=== PATIENT | female | born 1965 | race African-American/Black ===

== ENCOUNTER 2017-01-27 13:03 | Inpatient (IN) | payer MEDICARE, MEDICAID ==
[2017-01-27 13:55] LABS: Hematocrit 40 % (35-47); Hemoglobin 12.9 g/dl (12.0-16.0); Mean Corpuscular HGB Conc 33 g/dl (31-36); Mean Corpuscular Hemoglobin 29 pg (27-31); Mean Corpuscular Volume 88 fL (80-97); Mean Platelet Volume 9 um3 (7.4-10.4); Red Blood Count 4.53 10^6/ul (4.0-5.4); Red Cell Distribution Width 15 % (10.5-15); White Blood Count 4.9 10^3/ul (3.5-10.8)
[2017-01-27 14:20] LABS: ALT 33 U/L (7-52); AST 42 U/L (13-39); Albumin 4.2 g/dL (3.2-5.2); Alkaline Phosphatase 55 U/L (34-104); BUN/Creatinine Ratio 11.8 (8-20); Blood Urea Nitrogen 10 mg/dL (6-24); CO2 Carbon Dioxide 28 mmol/L (22-32); Chloride 103 mmol/L (101-111); EGFR African American 91.4 (>60); EGFR Non-African American 71.1 (>60); Globulin 3.9 g/dL (2-4); Glucose 122 mg/dL (70-100); Sodium 139 mmol/L (133-145); Total Protein 8.1 g/dL (6.4-8.9)
[2017-01-27 14:56] LABS: Acetaminophen < 15 mcg/mL; Alcohol < 10 mg/dL (<10); Salicylate < 2.50 mg/dL (<30)
[2017-01-27 15:01] LABS: TSH (Thyroid Stimulating Horm) 1.72 mcIU/mL (0.34-5.60)
[2017-01-27 15:04] LABS: Anion Gap 8 mmol/L (2-11); Potassium 2.7 mmol/L (3.5-5.0)
[2017-01-27] MEDS ORDERED: Potassium Chlor TAB* 20 MEQ TAB.ER PO ONE (15:17)
[2017-01-27 16:16] LABS: Urine Bacteria Absent (Absent); Urine Bilirubin Negative (Negative); Urine Glucose Negative (Negative); Urine Nitrite Negative (Negative)
[2017-01-27 16:25] LABS: Benzodiazepine Urine Screen None Detected (None Detect)
[2017-01-27] MEDS ORDERED: LORazepam TAB(*) 1 MG PO ONE (17:21)
[2017-01-27] MEDS ORDERED: Hydrochlorothiazide TAB* 25 MG PO ONE (17:23)
[2017-01-27] MEDS ORDERED: Lisinopril TAB* 10 MG PO ONE (17:23)
[2017-01-27] MEDS ORDERED: amLODIPine TAB* 5 MG PO ONE (18:31)
[2017-01-27] MEDS ORDERED: cloNIDine TAB* 0.1 MG PO ONE (18:31)
[2017-01-27] MEDS ORDERED: methylPREDNISolone 125 MG* 2 ML VIAL IV ONE (20:08)
[2017-01-27] MEDS ORDERED: diPHENhydraMINE IV* 50 MG/ML 1 ml VIAL (BENADRYL) IV ONE (20:08)
[2017-01-27] MEDS ORDERED: Famotidine IV* 10 MG/ML 2 ML (20 mg) IV ONE (20:08)
[2017-01-27] MEDS ORDERED: LORazepam INJ* 2 MG/ML 1 ML VIAL IV ONE (20:52)
--- NOTE | 2017-01-27 21:14 | ED ---
Arie Perrin Angela, scribed for Eliel Salcedo MD on 01/27/17 at 1322 . Psychiatric Complaint - HPI Summary HPI Summary: 51 y.o female presents to the ED accompanied with a friend c/o manic episodes a/ w auditory hallucinations and paranoia x3 days. Pt notes she has not been seeing any psychiatrists. She endorses SI but denies HI. Pt states a PMHx of bipolar but has not been compliant with her medications for "a while." Pt reports having beer today. - History Of Current Complaint Chief Complaint: EDPsychosocial Time Seen by Provider: 01/27/17 13:12 Hx Obtained From: Patient Onset/Duration: Lasting Days Aggravating Factor(s): Nothing Alleviating Factor(s): Nothing Associated Signs And Symptoms: Positive: Hallucinating, Paranoid Behavior Has Suicidal: Reports: Thoughts - Allergies/Home Medications Allergies/Adverse Reactions: Allergies Allergy/AdvReac Type Severity Reaction Status Date / Time No Known Allergies Allergy Verified 11/05/12 05:43 Home Medications: Home Medications Amitriptyline TAB* [Elavil TAB*] 25 mg PO BEDTIME 01/27/17 [History Confirmed ] Aspirin EC Low Dose* [Ecotrin EC Low Dose 81 MG*] 81 mg PO DAILY 01/27/17 [ History Confirmed 01/27/17] Atenolol TAB* [Tenormin TAB* 25 MG] 25 mg PO DAILY 01/27/17 [History Confirmed 01/27/17] Lisinopril/HCTZ 20/12.5(NF) [Zestoretic 20/12.5(NF)] 2 tab PO DAILY 01/27/17 [ History Confirmed 01/27/17] Potassium Chlor TAB* [Klor Con ER TAB*] 10 meq PO DAILY 01/27/17 [History Confirmed 01/27/17] ValACYclovir (*) [Valtrex 1 GM(*)] 1 gm PO DAILY 01/27/17 [History Confirmed 03/07] Zolpidem TAB* [Ambien TAB*] 10 mg PO BEDTIME PRN 01/27/17 [History Confirmed 03/07] clonazePAM TAB(*) [KlonoPIN TAB(*)] 1 mg PO TID PRN 01/27/17 [History Confirmed 01/27/17] metFORMIN* [Glucophage 1000 MG TAB *] 1,000 mg PO BID 01/27/17 [History Confirmed 01/27/17] PMH/Surg Hx/FS Hx/Imm Hx Endocrine/Hematology History: Reports: Hx Diabetes - FS BID Cardiovascular History: Reports: Hx Hypercholesterolemia, Hx Hypertension Psychiatric History: Reports: Hx Depression - FATHER, Hx Bipolar Disorder - MATERNAL UNCLE, Hx Suicide Attempt, Hx Substance Abuse Denies: Hx Eating Disorder, Hx of Violent Episodes Against Others - Surgical History Surgery Procedure, Year, and Place: HYSTERECTOMY FOR FIBROIDS Infectious Disease History: Reports: Hx Hepatitis Denies: Traveled Outside the [place] in Last 30 Days - Family History Known Family History: Positive: Other - No FHx mental illness - Social History Alcohol Use: unknown Substance Use Type: Reports: Cocaine, Heroin, Prescribed Smoking Status (MU): Unknown if Ever Smoked Review of Systems Negative: Fever Negative: Slurred Speech Positive: Other - Auditory hallucinations, SI, manic episodes, paranoia. NEGATIVE: HI All Other Systems Reviewed And Are Negative: Yes Physical Exam - Summary Physical Exam Summary: General: well-appearing, no pain distress Skin: warm, color reflects adequate perfusion, dry Head: normal Eyes: EOMI, JESUSITA ENT: normal Neck: supple, nontender Respiratory: CTA, breath sounds present Cardiovascular: RRR Abdomen: soft, nontender Bowel: present Musculoskeletal: normal, strength/ROM intact Neurological: normal, sensory/motor intact, A&O x3 Psychological: flat affect Triage Information Reviewed: Yes Vital Signs On Initial Exam: Initial Vitals Temp Pulse Resp BP Pulse Ox 97.4 F 102 16 148/90 100 01/27/17 13:07 01/27/17 13:07 01/27/17 13:07 01/27/17 13:07 01/27/17 13:07 Vital Signs Reviewed: Yes Diagnostics - Vital Signs Vital Signs Temp Pulse Resp BP Pulse Ox 01/27/17 13:07 97.4 F 102 16 148/90 100 - Laboratory Lab Results: Lab Results 01/27/17 01/27/17 01/27/17 Range/Units 13:42 13:42 16:03 WBC 4.9 (3.5-10.8) 10^3/ul RBC 4.53 (4.0-5.4) 10^6/ul Hgb 12.9 (12.0-16.0) g/dl Hct 40 (35-47) % MCV 88 (80-97) fL MCH 29 (27-31) pg MCHC 33 (31-36) g/dl RDW 15 (10.5-15) % Plt Count 214 (150-450) 10^3/ul MPV 9 (7.4-10.4) um3 Neut % (Auto) 63.0 (38-83) % Lymph % (Auto) 30.8 (25-47) % [place] % (Auto) 5.2 (1-9) % Eos % (Auto) 0.3 (0-6) % Baso % (Auto) 0.7 (0-2) % Absolute Neuts (auto) 3.1 (1.5-7.7) 10^3/ul Absolute Lymphs (auto) 1.5 (1.0-4.8) 10^3/ul Absolute Monos (auto) 0.3 (0-0.8) 10^3/ul Absolute Eos (auto) 0 (0-0.6) 10^3/ul Absolute Basos (auto) 0 (0-0.2) 10^3/ul Absolute Nucleated RBC 0 10^3/ul Nucleated RBC % 0 Sodium 139 (133-145) mmol/L Potassium 2.7 L* (3.5-5.0) mmol/L Chloride 103 (101-111) mmol/L Carbon Dioxide 28 (22-32) mmol/L Anion Gap 8 (2-11) mmol/L BUN 10 (6-24) mg/dL Creatinine 0.85 (0.51-0.95) mg/dL Est GFR ( Amer) 91.4 (>60) Est GFR (Non-Af Amer) 71.1 (>60) BUN/Creatinine Ratio 11.8 (8-20) Glucose 122 H (70-100) mg/dL Calcium 9.0 (8.6-10.3) mg/dL Total Bilirubin 0.30 (0.2-1.0) mg/dL AST 42 H (13-39) U/L ALT 33 (7-52) U/L Alkaline Phosphatase 55 (34-104) U/L Total Protein 8.1 (6.4-8.9) g/dL Albumin 4.2 (3.2-5.2) g/dL Globulin 3.9 (2-4) g/dL Albumin/Globulin Ratio 1.1 (1-3) TSH 1.72 (0.34-5.60) mcIU/mL Beta HCG, Quant 1.19 mIU/mL Urine Color Yellow Urine Appearance Cloudy Urine pH 6.0 (5-9) Ur Specific [place] 1.006 L (1.010-1.030) Urine Protein Negative (Negative) Urine Ketones Negative (Negative) Urine Blood Negative (Negative) Urine Nitrate Negative (Negative) Urine Bilirubin Negative (Negative) Urine Urobilinogen Negative (Negative) Ur Leukocyte Esterase Trace H (Negative) Urine WBC (Auto) Trace(0-5/hpf) (Absent) Urine RBC (Auto) Absent (Absent) Ur Squamous Epith Cells Present H (Absent) Urine Bacteria Absent (Absent) Urine Glucose Negative (Negative) Salicylates < 2.50 (<30) mg/dL Urine Opiates Screen (None Detect) Acetaminophen < 15 mcg/mL Ur Barbiturates Screen (None Detect) Ur Phencyclidine Scrn (None Detect) Ur Amphetamines Screen (None Detect) U Benzodiazepines Scrn (None Detect) Urine Cocaine Screen (None Detect) U Cannabinoids Screen (None Detect) Serum Alcohol < 10 (<10) mg/dL 01/27/17 Range/Units 16:03 WBC (3.5-10.8) 10^3/ul RBC (4.0-5.4) 10^6/ul Hgb (12.0-16.0) g/dl Hct (35-47) % MCV (80-97) fL MCH (27-31) pg MCHC (31-36) g/dl RDW (10.5-15) % Plt Count (150-450) 10^3/ul MPV (7.4-10.4) um3 Neut % (Auto) (38-83) % Lymph % (Auto) (25-47) % [place] % (Auto) (1-9) % Eos % (Auto) (0-6) % Baso % (Auto) (0-2) % Absolute Neuts (auto) (1.5-7.7) 10^3/ul Absolute Lymphs (auto) (1.0-4.8) 10^3/ul Absolute Monos (auto) (0-0.8) 10^3/ul Absolute Eos (auto) (0-0.6) 10^3/ul Absolute Basos (auto) (0-0.2) 10^3/ul Absolute Nucleated RBC 10^3/ul Nucleated RBC % Sodium (133-145) mmol/L Potassium (3.5-5.0) mmol/L Chloride (101-111) mmol/L Carbon Dioxide (22-32) mmol/L Anion Gap (2-11) mmol/L BUN (6-24) mg/dL Creatinine (0.51-0.95) mg/dL Est GFR ( Amer) (>60) Est GFR (Non-Af Amer) (>60) BUN/Creatinine Ratio (8-20) Glucose (70-100) mg/dL Calcium (8.6-10.3) mg/dL Total Bilirubin (0.2-1.0) mg/dL AST (13-39) U/L ALT (7-52) U/L Alkaline Phosphatase (34-104) U/L Total Protein (6.4-8.9) g/dL Albumin (3.2-5.2) g/dL Globulin (2-4) g/dL Albumin/Globulin Ratio (1-3) TSH (0.34-5.60) mcIU/mL Beta HCG, Quant mIU/mL Urine Color Urine Appearance Urine pH (5-9) Ur Specific [place] (1.010-1.030) Urine Protein (Negative) Urine Ketones (Negative) Urine Blood (Negative) Urine Nitrate (Negative) Urine Bilirubin (Negative) Urine Urobilinogen (Negative) Ur Leukocyte Esterase (Negative) Urine WBC (Auto) (Absent) Urine RBC (Auto) (Absent) Ur Squamous Epith Cells (Absent) Urine Bacteria (Absent) Urine Glucose (Negative) Salicylates (<30) mg/dL Urine Opiates Screen Presumptive positive H (None Detect) Acetaminophen mcg/mL Ur Barbiturates Screen None detected (None Detect) Ur Phencyclidine Scrn None detected (None Detect) Ur Amphetamines Screen None detected (None Detect) U Benzodiazepines Scrn None detected (None Detect) Urine Cocaine Screen Presumptive positive H (None Detect) U Cannabinoids Screen None detected (None Detect) Serum Alcohol (<10) mg/dL Result Diagrams: 01/27/17 13:42 01/27/17 13:42 Lab Statement: Any lab studies that have been ordered have been reviewed, and results considered in the medical decision making process. - EKG 1547 Cardiac Rate: NL - 86 bpm EKG Rhythm: Sinus Rhythm Ectopy: None EKG Interpretation: Early repolarization. No U waves. Re-Evaluation - Re-Evaluation First Eval Re-Evaluation Time: 15:22 Comment: Noise in the ED is slightly bothering pt. Explained process of mental health evaluation. Second Eval Re-Evaluation Time: 17:20 Comment: Pt is back from flex due to elevated BP. Third Eval Re-Evaluation Time: 20:05 Comment: Pt has swelling on upper left lip most likely from the lisinopril. Probably angioedema but airways are open. Course/Dx - Course Course Of Treatment: Medically cleared at 15:17. Elevated BP noted, pt is advised to follow up with her PCP for the htn. PATIENT CLEARED FOR MHE. SHE THEN DEVELOPED HYPERTENSION AND WITHDRAWAL SX. SHE WAS RETURNED TO THE ED. SHE WAS GIVEN ATIVAN 2MG PO, LISINOPRIL 20MG PO, HCTZ 12.5MG PO, AMLODIPINE 10MG PO AND CLONIDINE 0.1 MG PO. HER BP NORMALIZED, SHE THEN DEVELOPED SWELLING OF HER UPPER LIP; MOST PROBABLY ANGIOEDEMA FROM THE HESHAM INHIBITOR, LISINOPRIL. SHE WAS GIVEN BENADRYL 50MG IV, PEPCID 40MG IV AN SOLUMEDROL 125MG IV. LATER, FOR AGITATION, SHE WAS GIVEN ATIVAN 2MG IV. MHE/DISPOSITION PENDING AT SHIFT CHANGE. - Differential Dx/Clinical Impression Provider Diagnosis: Mental health problem, Hypokalemia, Hypertension, HESHAM inhibitor-aggravated angioedema Discharge - Discharge Plan Condition: Stable Disposition: OTHER Discharge Disposition Comment: Pt will be signed out pending dispo awaiting MH eval. Referrals: Lisa Cruz MD [Primary Care Provider] - The documentation as recorded by the Arie cornejo Angela accurately reflects the service I personally performed and the decisions made by me, Eliel Salcedo MD.
[2017-01-27] MEDS ORDERED: Mouth Piece, Nicotine* 1 EACH CARTRIDGE ONE (23:46)
[2017-01-27] MEDS: Nicotine Inhaler* 10 MG AMP INH PRN (23:48)
--- NOTE | 2017-01-28 16:14 | ED ---
Kamlesh Perrin Thomas, scribed for Skyler Trevizo MD on 01/28/17 at 1144 . Progress - Progress Note Progress Note: Patient was consulted by Dr. Clarke. The patient is diagnosed with substance- induced mood disorder. She is being admitted to [facility] voluntarily. Course/Dx - Diagnoses Provider Diagnoses: Substance induced mood disorder The documentation as recorded by the Kamlesh cornejo Thomas accurately reflects the service I personally performed and the decisions made by Santhosh najera Walter, MD.
[2017-01-28] MEDS: metFORMIN* 1,000 MG TAB PO SCH (17:03)
[2017-01-28] MEDS: Acetaminophen TAB* 325 MG PO PRN (18:55)
[2017-01-28] MEDS: Al Hydrox/Mg Hydrox/Simet LIQ* 30 ML UDC PO PRN (19:35)
[2017-01-28] MEDS ORDERED: Amitriptyline TAB* 25 MG PO SCH (21:00)
[2017-01-28] MEDS ORDERED: diPHENhydraMINE PO* 50 MG PO ONE (22:14)
[2017-01-28] MEDS ORDERED: diPHENhydraMINE PO* 50 MG ONE (22:17)
[2017-01-28] MEDS ORDERED: LORazepam IM 0-6 mg for WAM protocol IM SCH (23:00)
[2017-01-28] MEDS ORDERED: LORazepam TAB(*) 1 MG ONE (23:42)
[2017-01-28] MEDS ORDERED: Mouth Piece, Nicotine* 1 EACH CARTRIDGE ONE (23:47)
[2017-01-28] MEDS: LORazepam PO 0-6 for WAM protocol PO SCH (23:48)
[2017-01-28] MEDS: Nicotine Inhaler* 10 MG AMP INH PRN (23:49)
[2017-01-29] MEDS: Acetaminophen TAB* 325 MG PO PRN ×2 (00:09→17:29)
[2017-01-29] MEDS ORDERED: Lisinopril/HCTZ 20/12.5(NF) TAB PO SCH (09:00)
[2017-01-29] MEDS ORDERED: Atenolol TAB* 25 MG PO SCH (09:00)
[2017-01-29] MEDS: Potassium Chlor TAB* 10 MEQ TAB.ER PO SCH (09:48)
[2017-01-29] MEDS: Aspirin EC Low Dose* 81 MG TAB.EC PO SCH (09:48)
[2017-01-29] MEDS: Vitamin THERAPEUTIC TAB PO SCH (09:48)
[2017-01-29] MEDS: metFORMIN* 1,000 MG TAB PO SCH ×2 (09:48→17:27)
[2017-01-29] MEDS: diPHENhydraMINE PO* 50 MG PO PRN ×2 (10:22→22:07)
[2017-01-29] MEDS ORDERED: LORazepam TAB(*) 1 MG PO ONE (10:38)
[2017-01-29 12:09] LABS: BUN/Creatinine Ratio 17.7 (8-20); Calcium 8.4 mg/dL (8.6-10.3); EGFR African American 79.4 (>60); EGFR Non-African American 61.8 (>60); Potassium 3.3 mmol/L (3.5-5.0)
[2017-01-29] MEDS ORDERED: metroNIDAZOLE TAB* 250 MG PO ONE (12:58)
[2017-01-29 14:17] LABS: Call Hep C TO BE CALLED
[2017-01-29] MEDS: Gabapentin CAP(*) 300 MG PO SCH ×2 (14:57→22:10)
[2017-01-29] MEDS: LORazepam PO 0-6 for WAM protocol PO SCH (15:15)
[2017-01-29] MEDS: Nicotine PATCH 7 MG/24 HR* PATCH TRANSDERM SCH (15:20)
[2017-01-29] MEDS: Nicotine Inhaler* 10 MG AMP INH PRN (18:56)
--- NOTE | 2017-01-29 20:40 | CONS ---
CONSULTATION REPORT: DATE OF CONSULT: 01/29/17 SERVICE REQUESTING CONSULTATION: Psychiatry. REASON FOR CONSULTATION: Tongue heaviness. SOURCE OF INFORMATION: History obtained from interview with psychiatric services, review of ED records, review of past medical records and discussion with patient. RELIABILITY: Fair. HISTORY OF PRESENT ILLNESS: This is a 51-year-old female with past medical history of bipolar disorder, presented to the hospital on 01/27/17 with yecenia associated with auditory hallucinations and paranoid ideation for approximately 3 days. She had been cleared to proceed to mental health unit; however, was noted to be hypertensive and was given Ativan, lisinopril, hydrochlorothiazide, and amlodipine and clonidine. After her blood pressure normalized, she was noted to have swelling of her upper lip, which was thought to be secondary to angioedema secondary to lisinopril, although it is noted that this has been a past medication, all unclear if she has been taking it. In the emergency room, she was given Benadryl, Pepcid and Solu-Medrol with stabilization and discharged to mental health unit. At the time of that incident, the patient indicates that she had itching all over, indicates she had hives, although this is not documented in the ED record. She denies any past episode similar to this event. On the day of consultation 48 hours later, the patient indicated she had tongue heaviness for which the hospitalist service was consulted for evaluation. The patient indicates to this author that she has had tongue heaviness for approximately last hour without a change. She denies any other portion of her body that feels affected including her lips. She denies any difficulty swallowing or breathing. No nausea, vomiting, chest pain, or lightheadedness. She says that her hands itch, otherwise no other parts of her body. Of note, symptoms started approximately 25 minutes after administration of atenolol. PAST MEDICAL HISTORY: Includes bipolar disorder, hypertension, hyperlipidemia, diabetes per chart review, depression, history of hysterectomy, hepatitis. CURRENT MEDICATIONS: Include: 1. Acetaminophen. 2. Maalox Plus. 3. Amitriptyline. 4. Aspirin. 5. Atenolol. 6. Benadryl. 7. Lorazepam. 8. Metformin. 9. Multivitamins. 10. Nicotine inhaler. 11. Potassium chloride. FAMILY HISTORY: Reviewed and noncontributory to this presentation. SOCIAL HISTORY: Laboratory positive for opioids and cocaine on presentation to the hospital. REVIEW OF SYSTEMS: As per HPI, otherwise all other systems negative. PHYSICAL EXAM: Last vitals at this a.m., 134/82, 55 beats per minute, respiratory rate when seen by this author is 14, T-max 100.2 overnight. Well appearing, lying flat in bed, interactive, pleasant, in no apparent distress. Talks in full sentences. Oropharynx is clear. She has moist mucous membranes. Her lips and tongue are not swollen. She has very clear and patent airway. She has non- elevated JVD. No cervical or supraclavicular lymphadenopathy. She has regular rate and rhythm. Her lungs are clear to auscultation. Her abdomen is soft and nontender. Extremities are warm and well perfused without clubbing, cyanosis, or edema. Skin is dry without evidence of rashes. She is alert and oriented x3. Cranial nerves are intact. ASSESSMENT AND PLAN: This is a 51-year-old female admitted to [facility] in the setting of yecenia with ED stay complicated by hypertension and episode of tongue swelling, thought to be angioedema in the setting of lisinopril. 1. Tongue swelling. At this point, I identified no evidence of increased tongue swelling. The patient indicates that the sensation of "tongue heaviness " has been stable over the last hour. I cautioned the patient and counseled her at length that should she have any change in the sensation, she should notify staff immediately and I discussed with consulting provider that I am happy to return to evaluate as I examined her tongue and oropharynx at length in order to make future comparison should she have changing symptomatology. It would be unusual to have recurrent angioedema 48 hours after previous event and absence of readministration of medication. She has absence of any rashes or hives to suggest other anaphylactoid reaction to atenolol. Should she have rapid change in her tongue size or respiratory compromise, a CAT call will be appropriate as would administration of 0.3 mg of epinephrine intramuscularly. We are happy to assist in this delivery, but you should hesitate should the patient have any respiratory distress. We will continue to follow for the patient's tongue swelling. 2. Hypertension. Would not discontinue atenolol at this time. Continue same medications as indicated in MAR. She has good blood pressure control at this time. 3. Type 2 diabetes, currently on metformin. I have added on hemoglobin A1c to previous labs to help guide future therapy. 4. Hypokalemia. Discussed with consulting provider. We will recheck BMP at this time. One can expect approximately 0.1 normal per liter increase and potassium for each 10 mEq administered. Target should be greater than 3.5, so for example, for a potassium of 2.7 on the 9th, the patient will require 80 mEq which could be administered orally. We will reconnect after labs have been returned to adjust potassium dosing today. Thank you for this consultation. I will continue to follow. [id number]/[facility] #: [id number] OWEN
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
[2017-01-29] MEDS: Lithium Carbonate TAB* 300 MG PO SCH (21:58)
[2017-01-29] MEDS: LORazepam TAB(*) 1 MG PO SCH (21:58)
[2017-01-29] MEDS: Cyclobenzaprine TAB* 10 MG PO PRN (22:07)
[2017-01-29] MEDS: Al Hydrox/Mg Hydrox/Simet LIQ* 30 ML UDC PO PRN (22:09)
[2017-01-29] MEDS: Nicotine Patch Removal NOTE FOLLOW UP SCH (22:11)
[2017-01-30] MEDS: Lithium Carbonate TAB* 300 MG PO SCH ×2 (10:03→21:04)
[2017-01-30] MEDS: Vitamin THERAPEUTIC TAB PO SCH (10:04)
[2017-01-30] MEDS: LORazepam PO 0-6 for WAM protocol PO SCH (10:05)
[2017-01-30] MEDS: Aspirin EC Low Dose* 81 MG TAB.EC PO SCH (10:06)
[2017-01-30] MEDS: diPHENhydraMINE PO* 50 MG PO PRN ×2 (10:06→18:53)
[2017-01-30] MEDS: Potassium Chlor TAB* 10 MEQ TAB.ER PO SCH (10:06)
[2017-01-30] MEDS: metFORMIN* 1,000 MG TAB PO SCH ×2 (10:07→16:55)
[2017-01-30] MEDS: Cyclobenzaprine TAB* 10 MG PO PRN ×2 (10:07→18:52)
[2017-01-30] MEDS: amLODIPine TAB* 5 MG PO SCH (10:07)
[2017-01-30] MEDS: Gabapentin CAP(*) 300 MG PO SCH ×3 (10:08→21:03)
[2017-01-30] MEDS: Nicotine GUM* 2 MG PO PRN (10:09)
[2017-01-30] MEDS: LORazepam TAB(*) 1 MG PO SCH ×2 (10:10→21:18)
[2017-01-30] MEDS: Nicotine PATCH 7 MG/24 HR* PATCH TRANSDERM SCH (10:10)
--- NOTE | 2017-01-30 11:58 | CONSULT ---
Subjective Date of Service: 01/30/17 Interval History: Events from yesterday reviewed. Difficulty eating but now resolved. Feels tongue "heaviness" has now resolved. Pruritis in hands continues but is relieved by PRN benadryl. Started flagyl day RIB SAWYER for vulvovaginitis but was discontinued and her symptoms are worsening (foul smelling discharge) which is typical for her. Objective Active Medications: Acetaminophen (Tylenol Tab*) 650 mg PO Q4H PRN PRN Reason: for pain; or Temp >101 F Last Admin: 01/29/17 17:29 Dose: 650 mg Al Hydrox/Mg Hydrox/Simethicone (Maalox Plus*) 30 ml PO Q4H PRN PRN Reason: INDIGESTION Last Admin: 01/29/17 22:09 Dose: 30 ml Amlodipine Besylate (Norvasc Tab*) 10 mg PO DAILY [facility] Last Admin: 01/30/17 10:07 Dose: 10 mg Aspirin (Aspirin Ec Low Dose*) 81 mg PO DAILY [facility] Last Admin: 01/30/17 10:06 Dose: 81 mg Cyclobenzaprine HCl (Flexeril Tab*) 10 mg PO BID PRN PRN Reason: PAIN Last Admin: 01/30/17 10:07 Dose: 10 mg Diphenhydramine HCl (Benadryl Po*) 50 mg PO Q6H PRN PRN Reason: Allergy Symptoms Last Admin: 01/30/17 10:06 Dose: 50 mg Gabapentin (Neurontin Cap(*)) 300 mg PO TID [facility] Last Admin: 01/30/17 10:08 Dose: 300 mg [place] Carbonate ([place] Carbonate Tab*) 450 mg PO BID [facility] Last Admin: 01/30/17 10:03 Dose: 450 mg Lorazepam (Ativan Tab(*)) 0 - 6 mg PO .PER [facility] QUINTIN PRN Reason: Protocol Last Admin: 01/30/17 10:05 Dose: 1 mg Lorazepam (Ativan Inj*) 0 - 6 mg IM .PER [place] PROTOCOL [facility] PRN Reason: Protocol Lorazepam (Ativan Tab(*)) 1 mg PO BID [facility] Last Admin: 01/30/17 10:10 Dose: 1 mg Metformin HCl (Glucophage*) 1,000 mg PO BID WITH MEALS [facility] Last Admin: 01/30/17 10:07 Dose: 1,000 mg Metronidazole (Flagyl Tab*) 500 mg PO BID [facility] Stop: 02/05/17 21:01 Multivitamins (Theragran Tab*) 1 tab PO DAILY [facility] Last Admin: 01/30/17 10:04 Dose: 1 tab Nicotine (Nicotine Inhaler*) 10 mg INH Q2H PRN PRN Reason: CRAVING Last Admin: 01/29/17 18:56 Dose: 10 mg Nicotine (Nicotine Patch 7 Mg/24 Hr*) 1 patch TRANSDERM DAILY [facility] Last Admin: 01/30/17 10:10 Dose: 1 patch Nicotine Polacrilex (Nicotine Gum*) 2 mg PO Q2H PRN PRN Reason: CRAVING Last Admin: 01/30/17 10:09 Dose: 2 mg Pharmacy Profile Note (Nicotine Patch Removal Note*) 1 note FOLLOW UP 2100 [facility] Last Admin: 01/29/17 22:11 Dose: Not Given Potassium Chloride (Klor Con Er Tab*) 10 meq PO DAILY [facility] Last Admin: 01/30/17 10:06 Dose: 10 meq Vital Signs 01/29/17 01/29/17 01/29/17 12:22 12:46 14:57 Temperature Pulse Rate Respiratory 16 16 16 Rate Blood Pressure (mmHg) O2 Sat by Pulse Oximetry 01/29/17 01/29/17 01/29/17 15:15 15:59 16:00 Temperature 100.4 F Pulse Rate 62 Respiratory 17 20 18 Rate Blood Pressure 132/80 (mmHg) O2 Sat by Pulse 100 Oximetry 01/29/17 01/29/17 01/29/17 17:15 18:33 18:34 Temperature 97.7 F Pulse Rate 73 Respiratory 18 18 18 Rate Blood Pressure 130/87 (mmHg) O2 Sat by Pulse 100 Oximetry 01/29/17 01/29/17 01/29/17 20:19 21:58 22:07 Temperature Pulse Rate 80 Respiratory 20 18 16 Rate Blood Pressure 132/77 (mmHg) O2 Sat by Pulse 100 Oximetry 01/29/17 01/29/17 01/29/17 22:10 22:14 22:57 Temperature Pulse Rate 76 Respiratory 16 16 Rate Blood Pressure 139/80 (mmHg) O2 Sat by Pulse 100 Oximetry 01/29/17 01/30/17 01/30/17 23:58 00:07 00:10 Temperature Pulse Rate Respiratory 18 18 18 Rate Blood Pressure (mmHg) O2 Sat by Pulse Oximetry 01/30/17 01/30/17 01/30/17 08:00 10:05 10:06 Temperature 98.0 F Pulse Rate 58 Respiratory 14 14 14 Rate Blood Pressure 153/88 (mmHg) O2 Sat by Pulse 100 Oximetry 01/30/17 01/30/17 01/30/17 10:07 10:08 10:10 Temperature Pulse Rate Respiratory 14 14 14 Rate Blood Pressure (mmHg) O2 Sat by Pulse Oximetry 01/30/17 11:20 Temperature Pulse Rate Respiratory 17 Rate Blood Pressure (mmHg) O2 Sat by Pulse Oximetry Oxygen Devices in Use Now: None Appearance: well appearing lying in bed, NAD Ears/Nose/Mouth/Throat: NL Teeth, Lips, Gums, Clear Oropharnyx, Mucous Membranes Moist Respiratory: Symmetrical Chest Expansion and Respiratory Effort, Clear to Auscultation Cardiovascular: RRR Neurological: Alert and Oriented x 3 Result Diagrams: 01/27/17 13:42 01/29/17 11:31 Additional Lab and Data: Lab Results 01/27/17 01/27/17 01/27/17 Range/Units 13:42 13:42 16:03 WBC 4.9 (3.5-10.8) 10^3/ul RBC 4.53 (4.0-5.4) 10^6/ul Hgb 12.9 (12.0-16.0) g/dl Hct 40 (35-47) % MCV 88 (80-97) fL MCH 29 (27-31) pg MCHC 33 (31-36) g/dl RDW 15 (10.5-15) % Plt Count 214 (150-450) 10^3/ul MPV 9 (7.4-10.4) um3 Neut % (Auto) 63.0 (38-83) % Lymph % (Auto) 30.8 (25-47) % Chambers % (Auto) 5.2 (1-9) % Eos % (Auto) 0.3 (0-6) % Baso % (Auto) 0.7 (0-2) % Absolute Neuts (auto) 3.1 (1.5-7.7) 10^3/ul Absolute Lymphs (auto) 1.5 (1.0-4.8) 10^3/ul Absolute Monos (auto) 0.3 (0-0.8) 10^3/ul Absolute Eos (auto) 0 (0-0.6) 10^3/ul Absolute Basos (auto) 0 (0-0.2) 10^3/ul Absolute Nucleated RBC 0 10^3/ul Nucleated RBC % 0 Sodium 139 (133-145) mmol/L Potassium 2.7 L* (3.5-5.0) mmol/L Chloride 103 (101-111) mmol/L Carbon Dioxide 28 (22-32) mmol/L Anion Gap 8 (2-11) mmol/L BUN 10 (6-24) mg/dL Creatinine 0.85 (0.51-0.95) mg/dL Est GFR ( Amer) 91.4 (>60) Est GFR (Non-Af Amer) 71.1 (>60) BUN/Creatinine Ratio 11.8 (8-20) Glucose 122 H (70-100) mg/dL Calcium 9.0 (8.6-10.3) mg/dL Total Bilirubin 0.30 (0.2-1.0) mg/dL AST 42 H (13-39) U/L ALT 33 (7-52) U/L Alkaline Phosphatase 55 (34-104) U/L Total Protein 8.1 (6.4-8.9) g/dL Albumin 4.2 (3.2-5.2) g/dL Globulin 3.9 (2-4) g/dL Albumin/Globulin Ratio 1.1 (1-3) TSH 1.72 (0.34-5.60) mcIU/mL Beta HCG, Quant 1.19 mIU/mL Urine Color Yellow Urine Appearance Cloudy Urine pH 6.0 (5-9) Ur Specific [place] 1.006 L (1.010-1.030) Urine Protein Negative (Negative) Urine Ketones Negative (Negative) Urine Blood Negative (Negative) Urine Nitrate Negative (Negative) Urine Bilirubin Negative (Negative) Urine Urobilinogen Negative (Negative) Ur Leukocyte Esterase Trace H (Negative) Urine WBC (Auto) Trace(0-5/hpf) (Absent) Urine RBC (Auto) Absent (Absent) Ur Squamous Epith Cells Present H (Absent) Urine Bacteria Absent (Absent) Urine Glucose Negative (Negative) Salicylates < 2.50 (<30) mg/dL Urine Opiates Screen (None Detect) Acetaminophen < 15 mcg/mL Ur Barbiturates Screen (None Detect) Ur Phencyclidine Scrn (None Detect) Ur Amphetamines Screen (None Detect) U Benzodiazepines Scrn (None Detect) Urine Cocaine Screen (None Detect) U Cannabinoids Screen (None Detect) Serum Alcohol < 10 (<10) mg/dL 01/27/17 Range/Units 16:03 WBC (3.5-10.8) 10^3/ul RBC (4.0-5.4) 10^6/ul Hgb (12.0-16.0) g/dl Hct (35-47) % MCV (80-97) fL MCH (27-31) pg MCHC (31-36) g/dl RDW (10.5-15) % Plt Count (150-450) 10^3/ul MPV (7.4-10.4) um3 Neut % (Auto) (38-83) % Lymph % (Auto) (25-47) % Chambers % (Auto) (1-9) % Eos % (Auto) (0-6) % Baso % (Auto) (0-2) % Absolute Neuts (auto) (1.5-7.7) 10^3/ul Absolute Lymphs (auto) (1.0-4.8) 10^3/ul Absolute Monos (auto) (0-0.8) 10^3/ul Absolute Eos (auto) (0-0.6) 10^3/ul Absolute Basos (auto) (0-0.2) 10^3/ul Absolute Nucleated RBC 10^3/ul Nucleated RBC % Sodium (133-145) mmol/L Potassium (3.5-5.0) mmol/L Chloride (101-111) mmol/L Carbon Dioxide (22-32) mmol/L Anion Gap (2-11) mmol/L BUN (6-24) mg/dL Creatinine (0.51-0.95) mg/dL Est GFR ( Amer) (>60) Est GFR (Non-Af Amer) (>60) BUN/Creatinine Ratio (8-20) Glucose (70-100) mg/dL Calcium (8.6-10.3) mg/dL Total Bilirubin (0.2-1.0) mg/dL AST (13-39) U/L ALT (7-52) U/L Alkaline Phosphatase (34-104) U/L Total Protein (6.4-8.9) g/dL Albumin (3.2-5.2) g/dL Globulin (2-4) g/dL Albumin/Globulin Ratio (1-3) TSH (0.34-5.60) mcIU/mL Beta HCG, Quant mIU/mL Urine Color Urine Appearance Urine pH (5-9) Ur Specific [place] (1.010-1.030) Urine Protein (Negative) Urine Ketones (Negative) Urine Blood (Negative) Urine Nitrate (Negative) Urine Bilirubin (Negative) Urine Urobilinogen (Negative) Ur Leukocyte Esterase (Negative) Urine WBC (Auto) (Absent) Urine RBC (Auto) (Absent) Ur Squamous Epith Cells (Absent) Urine Bacteria (Absent) Urine Glucose (Negative) Salicylates (<30) mg/dL Urine Opiates Screen Presumptive positive H (None Detect) Acetaminophen mcg/mL Ur Barbiturates Screen None detected (None Detect) Ur Phencyclidine Scrn None detected (None Detect) Ur Amphetamines Screen None detected (None Detect) U Benzodiazepines Scrn None detected (None Detect) Urine Cocaine Screen Presumptive positive H (None Detect) U Cannabinoids Screen None detected (None Detect) Serum Alcohol (<10) mg/dL Assessment/Plan - Billing 51 yo F h/o [employer] admitted to [facility] with ED stay c/b suspected angioedema in setting of ACEi. Angioedema - resolved. Lisinopril added to allergy list Vulovovaginitis - flagyl 500BID x 7 days added to MAR Pruritis - Benadyl PRN Diabetes - HbA1c in prediabetic range on metformin. Continue current therapy Hypokalemia - improved without therapy Will sign off for now. Please call with additional question [phone]
[2017-01-30] MEDS: metroNIDAZOLE TAB* 250 MG PO SCH ×2 (12:56→21:03)
[2017-01-30] MEDS: Acetaminophen TAB* 325 MG PO PRN (18:52)
[2017-01-30] MEDS: Nicotine Patch Removal NOTE FOLLOW UP SCH (21:18)
[2017-01-31] MEDS: diPHENhydraMINE PO* 50 MG PO PRN ×2 (05:58→19:09)
[2017-01-31] MEDS: Acetaminophen TAB* 325 MG PO PRN (05:58)
[2017-01-31] MEDS: Cyclobenzaprine TAB* 10 MG PO PRN ×2 (05:58→21:54)
[2017-01-31] MEDS: amLODIPine TAB* 5 MG PO SCH (09:51)
[2017-01-31] MEDS: Gabapentin CAP(*) 300 MG PO SCH ×3 (09:52→21:49)
[2017-01-31] MEDS: metroNIDAZOLE TAB* 250 MG PO SCH ×2 (09:53→21:50)
[2017-01-31] MEDS: metFORMIN* 1,000 MG TAB PO SCH ×2 (09:54→17:43)
[2017-01-31] MEDS: Lithium Carbonate TAB* 300 MG PO SCH ×2 (09:54→21:51)
[2017-01-31] MEDS: Vitamin THERAPEUTIC TAB PO SCH (09:54)
[2017-01-31] MEDS: Potassium Chlor TAB* 10 MEQ TAB.ER PO SCH (09:54)
[2017-01-31] MEDS: LORazepam PO 0-6 for WAM protocol PO SCH ×2 (09:55→10:24)
[2017-01-31] MEDS: Nicotine PATCH 7 MG/24 HR* PATCH TRANSDERM SCH (09:56)
[2017-01-31] MEDS: Aspirin EC Low Dose* 81 MG TAB.EC PO SCH (09:56)
[2017-01-31] MEDS: LORazepam TAB(*) 1 MG PO SCH ×2 (10:27→21:49)
--- NOTE | 2017-01-31 21:01 | PN ---
Subjective - Subjective Service Type: 92434 Hosp care 15 min low complexity Subjective: Patient visible in the milieu and noted to be social with select peers. She is attending groups and participating in weekend milieu activities. Patient denies alcohol w/d symptoms. She reports med compliance and denies med s/e. Patient reports worsening anxiety and insomnia only. She denies alcohol w/d symptoms. Patient reports fair appetite, but reports poor sleep maintenance. Patient Rx'd Ambien at home, but was informed this provider would not restart both home Klonopin and Ambien due to hypoventilation syndrome, which was discussed with patient. Patient amenable to initiation of Elavil 50mg po qhs as she reports no benefit on multiple past mood stabilizers and Trazodone. This is patient's first trial of [place]. She denies SI/HI and AH/VH. Objective - Appearance Appearance: Thin Framed Dysmorphic Features: No Hygiene: Normal Grooming: Well Kept - Behavior Psychomotor Activities: Normal Exhibits Abnormal Movement: No - Attitude and Relatedness Attitude and Relatedness: Cooperative Eye Contact: Fair - Speech Quality: Unpressured Latencies: Normal Quantity: Appropriate - Mood Patient's Decription of Mood: "Anxious" - Affect Observed Affect: Tense Affect Consistent with: Dysphoria - Thought Process Patient's Thought Process: Coherent Thought Content: No Passive Wish, No Suicidal Planning, No Homicidal Ideation, No Paranoid Ideation - Sensorium Experiencing Hallucinations: No, Sensorium is Clear Type of Hallucinations: Visual: No, Auditory: No, Command: No - Level of Consciousness Level of Consciousness: Alert Orientation: Yes Intact, Yes Orientated to Time, Yes Orientated to Place, Yes Orientated to Person - Impulse Control Impulse Control: Intact - Insight and Judgement Insight and Judgement: Fair - Group Participation Particating in Group Activities: Yes - Medication Management Medication Management Adherence: Yes Assessment - Assessment Merits Inpatient Hospitalization: For Immediate Safety, For Stabilization Inpatient DSM-IV Dx: 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 2. Alcohol use d/o. 3. Cocaine use d/o. 4. PTSD. 5. Bipolar d/o by Hx Plan - Plan Treatment Plan: Name: PAULIE MARADIAGA Birthdate: 1965 [id number] 1. Continue admission to the [facility] for safety and Sx mx. 2. Will re-start home dose Klonopin as patient reports intolerable anxiety with strangers. 3. Patient gives informed consent to start Elavil 50mg po qhs for poor sleep. Medications: Current Medications Acetaminophen (Tylenol Tab*) 650 mg PO Q4H PRN PRN Reason: for pain; or Temp >101 F Last Admin: 01/31/17 05:58 Dose: 650 mg Al Hydrox/Mg Hydrox/Simethicone (Maalox Plus*) 30 ml PO Q4H PRN PRN Reason: INDIGESTION Last Admin: 01/29/17 22:09 Dose: 30 ml Amlodipine Besylate (Norvasc Tab*) 10 mg PO DAILY [facility] Last Admin: 01/31/17 09:51 Dose: 10 mg Aspirin (Aspirin Ec Low Dose*) 81 mg PO DAILY [facility] Last Admin: 01/31/17 09:56 Dose: 81 mg Cyclobenzaprine HCl (Flexeril Tab*) 10 mg PO BID PRN PRN Reason: PAIN Last Admin: 01/31/17 05:58 Dose: 10 mg Diphenhydramine HCl (Benadryl Po*) 50 mg PO Q6H PRN PRN Reason: Allergy Symptoms Last Admin: 01/31/17 19:09 Dose: 50 mg Gabapentin (Neurontin Cap(*)) 300 mg PO TID [facility] Last Admin: 01/31/17 15:27 Dose: 300 mg [place] Carbonate ([place] Carbonate Tab*) 450 mg PO BID [facility] Last Admin: 01/31/17 09:54 Dose: 450 mg Lorazepam (Ativan Tab(*)) 1 mg PO BID [facility] Last Admin: 01/31/17 10:27 Dose: 1 mg Metformin HCl (Glucophage*) 1,000 mg PO BID WITH MEALS [facility] Last Admin: 01/31/17 17:43 Dose: 1,000 mg Metronidazole (Flagyl Tab*) 500 mg PO BID [facility] Stop: 02/05/17 21:01 Last Admin: 01/31/17 09:53 Dose: 500 mg Multivitamins (Theragran Tab*) 1 tab PO DAILY [facility] Last Admin: 01/31/17 09:54 Dose: 1 tab Nicotine (Nicotine Inhaler*) 10 mg INH Q2H PRN PRN Reason: CRAVING Last Admin: 01/29/17 18:56 Dose: 10 mg Nicotine (Nicotine Patch 7 Mg/24 Hr*) 1 patch TRANSDERM DAILY [facility] Last Admin: 01/31/17 09:56 Dose: 1 patch Nicotine Polacrilex (Nicotine Gum*) 2 mg PO Q2H PRN PRN Reason: CRAVING Last Admin: 01/30/17 10:09 Dose: 2 mg Pharmacy Profile Note (Nicotine Patch Removal Note*) 1 note FOLLOW UP 2100 [facility] Last Admin: 01/30/17 21:18 Dose: 1 note Potassium Chloride (Klor Con Er Tab*) 10 meq PO DAILY [facility] Last Admin: 01/31/17 09:54 Dose: 10 meq - Discharge Plan Discharge Plan: Outpatient Follow Up
[2017-01-31] MEDS ORDERED: clonazePAM TAB(*) 1 MG PO ONE (21:55)
[2017-01-31] MEDS ORDERED: Amitriptyline TAB* 50 MG PO SCH (22:00)
[2017-01-31] MEDS: Nicotine Patch Removal NOTE FOLLOW UP SCH (22:14)
[2017-02-01] MEDS: Cyclobenzaprine TAB* 10 MG PO PRN ×2 (08:36→21:12)
[2017-02-01] MEDS: Aspirin EC Low Dose* 81 MG TAB.EC PO SCH (08:37)
[2017-02-01] MEDS: clonazePAM TAB(*) 1 MG PO PRN ×2 (08:37→15:19)
[2017-02-01] MEDS: Nicotine Inhaler* 10 MG AMP INH PRN (08:37)
[2017-02-01] MEDS: Nicotine GUM* 2 MG PO PRN ×2 (08:37→15:48)
[2017-02-01] MEDS: Gabapentin CAP(*) 300 MG PO SCH ×2 (08:38→12:32)
[2017-02-01] MEDS: amLODIPine TAB* 5 MG PO SCH (08:38)
[2017-02-01] MEDS: Vitamin THERAPEUTIC TAB PO SCH (08:38)
[2017-02-01] MEDS: metFORMIN* 1,000 MG TAB PO SCH ×2 (08:38→16:47)
[2017-02-01] MEDS: Nicotine PATCH 7 MG/24 HR* PATCH TRANSDERM SCH (08:38)
[2017-02-01] MEDS: Potassium Chlor TAB* 10 MEQ TAB.ER PO SCH (08:38)
[2017-02-01] MEDS: metroNIDAZOLE TAB* 250 MG PO SCH ×2 (08:38→21:11)
[2017-02-01] MEDS: Lithium Carbonate TAB* 300 MG PO SCH ×2 (08:39→21:06)
[2017-02-01 08:56] LABS: BUN/Creatinine Ratio 14.1 (8-20); Calcium 9.2 mg/dL (8.6-10.3); EGFR Non-African American 78.5 (>60); Potassium 3.7 mmol/L (3.5-5.0)
[2017-02-01] MEDS: diPHENhydraMINE PO* 50 MG PO PRN ×2 (10:24→21:13)
[2017-02-01 11:08] LABS: Lithium 0.65 mmol/L (0.6-1.2)
[2017-02-01] MEDS: VALACYCLOVIR 1 GM PO SCH (12:32)
--- NOTE | 2017-02-01 15:38 | PN ---
Subjective - Subjective Service Type: 45781 Hosp care 15 min low complexity Subjective: Paulie requests to talk to this ghost writer directly after treatment team. She states "you had no right to take me off my klonopin." She states she cannot assess the effect of lithium trial due to high level of anxiety over the weekend. Concrete Crusher Loader Operator attempts to explain that substance use treatment facilities will not likely accept patients on controlled anxiolytics. She states she would prefer to be referred to a place that targets mental health. She endorses sleep latency due to racing thoughts. She states she did not take amitriptyline due to prior allergic reaction 3 years ago. She states that trazodone is not effective and does not want medications that cause weight gain. She is informed of normal BMP and negative HIV. She is informed of Hep C positive antibody. SHe reports anxiety and eagerness to start treatment if indicated. Objective - Appearance Appearance: Well Developed/Nourished Dysmorphic Features: Yes Hygiene: Normal Grooming: Fairly Well Kept - Behavior Psychomotor Activities: Normal Exhibits Abnormal Movement: No - Attitude and Relatedness Attitude and Relatedness: Irritable Eye Contact: Good - Speech Quality: Unpressured Latencies: Normal Quantity: Copious - interrupting - Mood Patient's Decription of Mood: "Anxious" - Affect Observed Affect: Tense Affect Consistent with: Dysphoria - Thought Process Patient's Thought Process: Circumstantial - klonopin; hep C treatment Assessment - Assessment Merits Inpatient Hospitalization: For Immediate Safety, For Stabilization, Consolidate Improvements, For Discharge Planning Inpatient DSM-IV Dx: 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 2. Alcohol use d/o. 3. Cocaine use d/o. 4. PTSD. 5. Bipolar d/o by Hx Clinical Impression: Patient is a 51yo female with recent deaths of three loved ones. She was sober from alcohol and drugs for two years and relapsed last week. She reports desire to be referred to extended program for dual diagnosis treatment. She has been non-adherent to most of her medications with the exception of controlled substances. She has poor insight into the effect of shadow graph weight operator use of benzodiazepines. Plan - Plan Treatment Plan: Name: PAULIE MARADIAGA Birthdate: 1965 [id number] Decrease use of clonazepam while increasing use of gabapentin and non- pharmalogical treatment for anxiety. Continue to treat bipolar disorder with lithium. Decrease observation to q30 min and allow staff pass. Consider further testing for hepatitis C. Continued Medication Management: Different Medication Medications: Current Medications Acetaminophen (Tylenol Tab*) 650 mg PO Q4H PRN PRN Reason: for pain; or Temp >101 F Last Admin: 01/31/17 05:58 Dose: 650 mg Al Hydrox/Mg Hydrox/Simethicone (Maalox Plus*) 30 ml PO Q4H PRN PRN Reason: INDIGESTION Last Admin: 01/29/17 22:09 Dose: 30 ml Amitriptyline HCl (Elavil Tab*) 50 mg PO BEDTIME [facility] Last Admin: 01/31/17 22:14 Dose: Not Given Amlodipine Besylate (Norvasc Tab*) 10 mg PO DAILY [facility] Last Admin: 02/01/17 08:38 Dose: 10 mg Aspirin (Aspirin Ec Low Dose*) 81 mg PO DAILY [facility] Last Admin: 02/01/17 08:37 Dose: 81 mg Clonazepam (Klonopin Tab(*)) 1 mg PO TID PRN PRN Reason: ANXIETY Last Admin: 02/01/17 15:19 Dose: 1 mg Cyclobenzaprine HCl (Flexeril Tab*) 10 mg PO BID PRN PRN Reason: PAIN Last Admin: 02/01/17 08:36 Dose: 10 mg Diphenhydramine HCl (Benadryl Po*) 50 mg PO Q6H PRN PRN Reason: Allergy Symptoms Last Admin: 02/01/17 10:24 Dose: 50 mg Gabapentin (Neurontin Cap(*)) 300 mg PO TID [facility] Last Admin: 02/01/17 12:32 Dose: 300 mg [place] Carbonate ([place] Carbonate Tab*) 450 mg PO BID [facility] Last Admin: 02/01/17 08:39 Dose: 450 mg Metformin HCl (Glucophage*) 1,000 mg PO BID WITH MEALS [facility] Last Admin: 02/01/17 08:38 Dose: 1,000 mg Metronidazole (Flagyl Tab*) 500 mg PO BID [facility] Stop: 02/05/17 21:01 Last Admin: 02/01/17 08:38 Dose: 500 mg Multivitamins (Theragran Tab*) 1 tab PO DAILY [facility] Last Admin: 02/01/17 08:38 Dose: 1 tab Nicotine (Nicotine Inhaler*) 10 mg INH Q2H PRN PRN Reason: CRAVING Last Admin: 02/01/17 08:37 Dose: 10 mg Nicotine (Nicotine Patch 7 Mg/24 Hr*) 1 patch TRANSDERM DAILY [facility] Last Admin: 02/01/17 08:38 Dose: 1 patch Nicotine Polacrilex (Nicotine Gum*) 2 mg PO Q2H PRN PRN Reason: CRAVING Last Admin: 02/01/17 08:37 Dose: 2 mg Pharmacy Profile Note (Nicotine Patch Removal Note*) 1 note FOLLOW UP 2100 [facility] Last Admin: 01/31/17 22:14 Dose: 1 note Potassium Chloride (Klor Con Er Tab*) 10 meq PO DAILY [facility] Last Admin: 02/01/17 08:38 Dose: 10 meq Valacyclovir HCl (Valtrex 1 Gm(*)) 1 gm PO DAILY [facility] PRN Reason: Protocol Last Admin: 02/01/17 12:32 Dose: 1 gm - Discharge Plan Discharge Plan: Consider Longer Term Tx Outpatient Program: [facility]
[2017-02-01] MEDS ORDERED: Lithium Carbonate TAB* 300 MG ONE (21:10)
[2017-02-01] MEDS: clonazePAM TAB(*) 1 MG PO SCH (21:11)
[2017-02-01] MEDS: Gabapentin CAP(*) 400 MG PO SCH (21:11)
[2017-02-01] MEDS: Acetaminophen TAB* 325 MG PO PRN (21:13)
[2017-02-01] MEDS: Nicotine Patch Removal NOTE FOLLOW UP SCH (22:45)
[2017-02-02] MEDS: Cyclobenzaprine TAB* 10 MG PO PRN ×4 (02:54→22:08)
[2017-02-02] MEDS: Acetaminophen TAB* 325 MG PO PRN ×3 (02:54→13:53)
[2017-02-02] MEDS: diPHENhydraMINE PO* 50 MG PO PRN ×4 (02:54→22:08)
[2017-02-02] MEDS: Aspirin EC Low Dose* 81 MG TAB.EC PO SCH (08:23)
[2017-02-02] MEDS: metFORMIN* 1,000 MG TAB PO SCH ×2 (08:23→17:34)
[2017-02-02] MEDS: amLODIPine TAB* 5 MG PO SCH (08:23)
[2017-02-02] MEDS: clonazePAM TAB(*) 1 MG PO SCH ×2 (08:24→22:08)
[2017-02-02] MEDS: Lithium Carbonate TAB* 300 MG PO SCH (08:24)
[2017-02-02] MEDS: metroNIDAZOLE TAB* 250 MG PO SCH ×2 (08:24→22:10)
[2017-02-02] MEDS: Gabapentin CAP(*) 400 MG PO SCH (08:24)
[2017-02-02] MEDS: Vitamin THERAPEUTIC TAB PO SCH (08:25)
[2017-02-02] MEDS: VALACYCLOVIR 1 GM PO SCH (08:25)
[2017-02-02] MEDS: Potassium Chlor TAB* 10 MEQ TAB.ER PO SCH (08:25)
[2017-02-02] MEDS: Nicotine PATCH 7 MG/24 HR* PATCH TRANSDERM SCH (09:40)
--- NOTE | 2017-02-02 11:14 | PN ---
Subjective - Subjective Service Type: 96506 Hosp care 15 min low complexity Subjective: Patient is irritable and expresses anger toward newspaper writer for benzodiazepine taper. She curses and yells at newspaper writer. Patient dismissive of suggestions to participate in [facility] referrals or other options such as outpatient services. She has been seclusive to room except for meals. She vacillates between desire for substance use treatment in regards to being continued on klonopin. She states she would like to continue on current medications until she goes to rehab and states indifference about danger of abrupt withdrawal. Objective - Appearance Appearance: Thin Framed Dysmorphic Features: No Hygiene: Normal Grooming: Fairly Well Kept - Behavior Psychomotor Activities: Normal Exhibits Abnormal Movement: No - Attitude and Relatedness Attitude and Relatedness: Irritable Eye Contact: Fair - Speech Quality: Pressured Latencies: Normal Quantity: Copious - Mood Patient's Decription of Mood: "Angry" - Affect Observed Affect: Labile Affect Consistent with: Dysphoria - Thought Process Patient's Thought Process: Circumstantial Thought Content: No Passive Wish, No Suicidal Planning, No Homicidal Ideation, No Paranoid Ideation - Sensorium Experiencing Hallucinations: No, Sensorium is Clear Type of Hallucinations: Visual: No, Auditory: No, Command: No - Level of Consciousness Level of Consciousness: Alert Orientation: Yes Intact, Yes Orientated to Time, Yes Orientated to Place, Yes Orientated to Person - Impulse Control Impulse Control: Poor - Insight and Judgement Insight and Judgement: Poor - Group Participation Particating in Group Activities: No - Medication Management Medication Management Adherence: Yes Assessment - Assessment Merits Inpatient Hospitalization: For Immediate Safety, For Stabilization, For Discharge Planning Inpatient DSM-IV Dx: 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 2. Alcohol use d/o. 3. Cocaine use d/o. 4. PTSD. 5. Bipolar d/o by Hx Clinical Impression: Patient is a 51yo female with recent deaths of three loved ones. She was sober from alcohol and drugs for two years and relapsed last week. She reports desire to be referred to extended program for dual diagnosis treatment. She has been non-adherent to most of her medications with the exception of controlled substances. She has poor insight into the effect of use of benzodiazepines. She is encouraged to participate in [facility] programming and complete paperwork for referrals. Plan - Plan Treatment Plan: Name: PAULIE MARADIAGA Birthdate: 1965 [id number] Decrease use of clonazepam while increasing use of gabapentin and non- pharmalogical treatment for anxiety. Continue to treat bipolar disorder with lithium and change to ER at bedtime for improved sleep. Staff to assist with completing [facility] paperwork to pursue referrals. Continued Medication Management: Different Medication Medications: Current Medications Acetaminophen (Tylenol Tab*) 650 mg PO Q4H PRN PRN Reason: for pain; or Temp >101 F Last Admin: 02/02/17 08:25 Dose: 650 mg Al Hydrox/Mg Hydrox/Simethicone (Maalox Plus*) 30 ml PO Q4H PRN PRN Reason: INDIGESTION Last Admin: 01/29/17 22:09 Dose: 30 ml Amlodipine Besylate (Norvasc Tab*) 10 mg PO DAILY [facility] Last Admin: 02/02/17 08:23 Dose: 10 mg Aspirin (Aspirin Ec Low Dose*) 81 mg PO DAILY [facility] Last Admin: 02/02/17 08:23 Dose: 81 mg Clonazepam (Klonopin Tab(*)) 1 mg PO BID [facility] Last Admin: 02/02/17 08:24 Dose: 1 mg Cyclobenzaprine HCl (Flexeril Tab*) 10 mg PO BID PRN PRN Reason: PAIN Last Admin: 02/02/17 08:25 Dose: 10 mg Diphenhydramine HCl (Benadryl Po*) 50 mg PO Q6H PRN PRN Reason: Allergy Symptoms Last Admin: 02/02/17 08:25 Dose: 50 mg Gabapentin (Neurontin Cap(*)) 600 mg PO TID [facility] Last Admin: 02/02/17 08:24 Dose: 400 mg [place] Carbonate ER ([place] Carbonate Tab ER*) 900mg PO BEDTIME [facility] Last Admin: 02/02/17 08:24 Dose: 450 mg Metformin HCl (Glucophage*) 1,000 mg PO BID WITH MEALS [facility] Last Admin: 02/02/17 08:23 Dose: 1,000 mg Metronidazole (Flagyl Tab*) 500 mg PO BID [facility] Stop: 02/05/17 21:01 Last Admin: 02/02/17 08:24 Dose: 500 mg Multivitamins (Theragran Tab*) 1 tab PO DAILY [facility] Last Admin: 02/02/17 08:25 Dose: 1 tab Nicotine (Nicotine Inhaler*) 10 mg INH Q2H PRN PRN Reason: CRAVING Last Admin: 02/01/17 08:37 Dose: 10 mg Nicotine (Nicotine Patch 7 Mg/24 Hr*) 1 patch TRANSDERM DAILY [facility] Last Admin: 02/02/17 09:40 Dose: 1 patch Nicotine Polacrilex (Nicotine Gum*) 2 mg PO Q2H PRN PRN Reason: CRAVING Last Admin: 02/01/17 15:48 Dose: 2 mg Pharmacy Profile Note (Nicotine Patch Removal Note*) 1 note FOLLOW UP 2100 [facility] Last Admin: 02/01/17 22:45 Dose: 1 note Potassium Chloride (Klor Con Er Tab*) 10 meq PO DAILY [facility] Last Admin: 02/02/17 08:25 Dose: 10 meq Valacyclovir HCl (Valtrex 1 Gm(*)) 1 gm PO DAILY [facility] PRN Reason: Protocol Last Admin: 02/02/17 08:25 Dose: 1 gm - Discharge Plan Discharge Plan: Drug/Alcohol Rehab
[2017-02-02] MEDS: Gabapentin CAP(*) 300 MG PO SCH ×2 (13:51→22:07)
[2017-02-02] MEDS: Lithium Carbonate ER* 450 MG TAB.ER PO SCH (22:07)
[2017-02-02] MEDS: Nicotine Patch Removal NOTE FOLLOW UP SCH (22:11)
[2017-02-03] MEDS: Nicotine Inhaler* 10 MG AMP INH PRN (06:09)
[2017-02-03] MEDS: Cyclobenzaprine TAB* 10 MG PO PRN ×2 (06:09→22:14)
[2017-02-03] MEDS: diPHENhydraMINE PO* 50 MG PO PRN ×2 (06:09→22:14)
[2017-02-03] MEDS: Acetaminophen TAB* 325 MG PO PRN ×2 (06:09→19:48)
[2017-02-03] MEDS: Nicotine GUM* 2 MG PO PRN ×4 (06:09→19:47)
[2017-02-03] MEDS: Gabapentin CAP(*) 300 MG PO SCH ×3 (09:38→22:15)
[2017-02-03] MEDS: Potassium Chlor TAB* 10 MEQ TAB.ER PO SCH (09:38)
[2017-02-03] MEDS: metFORMIN* 1,000 MG TAB PO SCH ×2 (09:38→16:51)
[2017-02-03] MEDS: Aspirin EC Low Dose* 81 MG TAB.EC PO SCH (09:39)
[2017-02-03] MEDS: amLODIPine TAB* 5 MG PO SCH (09:39)
[2017-02-03] MEDS: clonazePAM TAB(*) 1 MG PO SCH ×2 (09:39→22:15)
[2017-02-03] MEDS: Vitamin THERAPEUTIC TAB PO SCH (09:39)
[2017-02-03] MEDS: metroNIDAZOLE TAB* 250 MG PO SCH ×2 (09:39→22:16)
[2017-02-03] MEDS: VALACYCLOVIR 1 GM PO SCH (09:40)
[2017-02-03] MEDS: Nicotine PATCH 7 MG/24 HR* PATCH TRANSDERM SCH (11:00)
--- NOTE | 2017-02-03 15:39 | PN ---
Subjective - Subjective Subjective: Patient reports she is "tired" as she is not able to sleep well at night. She has been sleeping intermittently throughout the day. Purchasing And Fiscal Clerk encouraged her to stay awake during the day and participate in groups for therapeutic effect. Patient has been participating moreso in discharge planning. She found 1-800 phone numbers from a magazine and called some substance use treatment facilities : [facility] in [place], [facility] in [place], [place] and [facility]. She was initially dismissive of list of agencies from [facility] packet then expressed interest in [facility] in [facility]. Objective - Appearance Appearance: Thin Framed Dysmorphic Features: Yes Hygiene: Dirty Grooming: Disheveled - Behavior Psychomotor Activities: Abnormal-Decreased - psychomotor retardation Exhibits Abnormal Movement: Yes - Attitude and Relatedness Attitude and Relatedness: Withdrawn Eye Contact: Fair - Speech Quality: Unpressured Latencies: Short Quantity: Copious - Mood Patient's Decription of Mood: "tired" - Affect Observed Affect: Depressed Affect Consistent with: Dysphoria - Thought Process Patient's Thought Process: Coherent, Goal Directed, Circumstantial Thought Content: No Passive Wish, No Suicidal Planning, No Homicidal Ideation, No Paranoid Ideation - Sensorium Experiencing Hallucinations: No, Sensorium is Clear Type of Hallucinations: Visual: No, Auditory: No, Command: No - Level of Consciousness Level of Consciousness: Alert Orientation: Yes Intact, Yes Orientated to Time, Yes Orientated to Place, Yes Orientated to Person - Impulse Control Impulse Control: Tenuous - Insight and Judgement Insight and Judgement: Poor - Group Participation Particating in Group Activities: No - Medication Management Medication Management Adherence: Yes Assessment - Assessment Merits Inpatient Hospitalization: For Immediate Safety, For Stabilization, For Ongoing Evaluation, For Discharge Planning Inpatient DSM-IV Dx: 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 2. Alcohol use d/o. 3. Cocaine use d/o. 4. PTSD. 5. Bipolar d/o by Hx Clinical Impression: Patient is a 51yo female with recent deaths of three loved ones. She was sober from alcohol and drugs for two years and relapsed last week. She reports desire to be referred to extended program for dual diagnosis treatment. She has been non-adherent to most of her medications with the exception of controlled substances. She has poor insight into the effect of use of benzodiazepines. She is encouraged to participate in [facility] programming and complete paperwork for referrals. Patient reports being unable to sleep well at night due to decrease in sedating medications. She is encouraged to decrease daytime use of sedating medications , to attend programming and stay awake until bedtime to improve circadian rhythm. Plan - Plan Treatment Plan: Name: PAULIE MARADIAGA Birthdate: 1965 [id number] Decrease use of clonazepam while increasing use of gabapentin and non- pharmalogical treatment for anxiety. Continue to treat bipolar disorder with lithium and change to ER at bedtime for improved sleep. Obtain lithium level on morning of 02/05/17. Participate in unit programming to gain full benefit of admission. Continued Medication Management: Different Medication Medications: Current Medications Acetaminophen (Tylenol Tab*) 650 mg PO Q4H PRN PRN Reason: for pain; or Temp >101 F Last Admin: 02/03/17 06:09 Dose: 650 mg Al Hydrox/Mg Hydrox/Simethicone (Maalox Plus*) 30 ml PO Q4H PRN PRN Reason: INDIGESTION Last Admin: 01/29/17 22:09 Dose: 30 ml Amlodipine Besylate (Norvasc Tab*) 10 mg PO DAILY [facility] Last Admin: 02/03/17 09:39 Dose: 10 mg Aspirin (Aspirin Ec Low Dose*) 81 mg PO DAILY [facility] Last Admin: 02/03/17 09:39 Dose: 81 mg Clonazepam (Klonopin Tab(*)) 1 mg PO BID [facility] Last Admin: 02/03/17 09:39 Dose: 1 mg Cyclobenzaprine HCl (Flexeril Tab*) 10 mg PO BID PRN PRN Reason: PAIN Last Admin: 02/03/17 06:09 Dose: 10 mg Diphenhydramine HCl (Benadryl Po*) 50 mg PO Q6H PRN PRN Reason: Allergy Symptoms Last Admin: 02/03/17 06:09 Dose: 50 mg Gabapentin (Neurontin Cap(*)) 600 mg PO TID [facility] Last Admin: 02/03/17 14:37 Dose: 600 mg [place] Carbonate ([place] Carbonate Er Tab*) 900 mg PO BEDTIME [facility] Last Admin: 02/02/17 22:07 Dose: 900 mg Metformin HCl (Glucophage*) 1,000 mg PO BID WITH MEALS [facility] Last Admin: 02/03/17 09:38 Dose: 1,000 mg Metronidazole (Flagyl Tab*) 500 mg PO BID [facility] Stop: 02/05/17 21:01 Last Admin: 02/03/17 09:39 Dose: 500 mg Multivitamins (Theragran Tab*) 1 tab PO DAILY [facility] Last Admin: 02/03/17 09:39 Dose: 1 tab Nicotine (Nicotine Inhaler*) 10 mg INH Q2H PRN PRN Reason: CRAVING Last Admin: 02/03/17 06:09 Dose: 10 mg Nicotine (Nicotine Patch 7 Mg/24 Hr*) 1 patch TRANSDERM DAILY [facility] Last Admin: 02/03/17 11:00 Dose: Not Given Nicotine Polacrilex (Nicotine Gum*) 2 mg PO Q2H PRN PRN Reason: CRAVING Last Admin: 02/03/17 14:37 Dose: 2 mg Pharmacy Profile Note (Nicotine Patch Removal Note*) 1 note FOLLOW UP 2100 [facility] Last Admin: 02/02/17 22:11 Dose: 1 note Potassium Chloride (Klor Con Er Tab*) 10 meq PO DAILY [facility] Last Admin: 02/03/17 09:38 Dose: 10 meq Valacyclovir HCl (Valtrex 1 Gm(*)) 1 gm PO DAILY [facility] PRN Reason: Protocol Last Admin: 02/03/17 09:40 Dose: 1 gm - Discharge Plan Discharge Plan: Drug/Alcohol Rehab
[2017-02-03] MEDS: Al Hydrox/Mg Hydrox/Simet LIQ* 30 ML UDC PO PRN (19:49)
[2017-02-03 22:08] LABS: Hepatitis C RNA Quantitative Undetected IU/mL (Undetected)
[2017-02-03] MEDS: Lithium Carbonate ER* 450 MG TAB.ER PO SCH (22:13)
[2017-02-03] MEDS: Nicotine Patch Removal NOTE FOLLOW UP SCH (22:17)
[2017-02-04] MEDS: Vitamin THERAPEUTIC TAB PO SCH (08:33)
[2017-02-04] MEDS: Potassium Chlor TAB* 10 MEQ TAB.ER PO SCH (08:33)
[2017-02-04] MEDS: metFORMIN* 1,000 MG TAB PO SCH ×2 (08:33→16:01)
[2017-02-04] MEDS: amLODIPine TAB* 5 MG PO SCH (08:33)
[2017-02-04] MEDS: Gabapentin CAP(*) 300 MG PO SCH ×3 (08:33→21:58)
[2017-02-04] MEDS: metroNIDAZOLE TAB* 250 MG PO SCH ×2 (08:34→21:58)
[2017-02-04] MEDS: Aspirin EC Low Dose* 81 MG TAB.EC PO SCH (08:34)
[2017-02-04] MEDS: clonazePAM TAB(*) 1 MG PO SCH ×2 (08:34→21:58)
[2017-02-04] MEDS: VALACYCLOVIR 1 GM PO SCH (08:35)
[2017-02-04] MEDS: Nicotine PATCH 7 MG/24 HR* PATCH TRANSDERM SCH (08:35)
[2017-02-04] MEDS: Nicotine GUM* 2 MG PO PRN ×3 (08:37→16:52)
[2017-02-04] MEDS ORDERED: Mouth Piece, Nicotine* 1 EACH CARTRIDGE ONE (08:38)
[2017-02-04] MEDS: Nicotine Inhaler* 10 MG AMP INH PRN (08:38)
--- NOTE | 2017-02-04 14:21 | PN ---
Subjective - Subjective Service Type: 45107 Hosp care 15 min low complexity Subjective: Patient is calm and pleasant. She reports sleeping well last night and feels rested today. She has been working diligently on researching substance treatment facilities. Referrals being made by inventory planner. she states "I still feel like I have a lot of anxiety." She is receptive to suggestion of maintaining current medication regimen pending substance use tx facilities admission criteria. She is also receptive to suggestions of utilizing groups and learning new coping skills. She apologizes for agitation directed at staff in previous days. Patient questions answered re: further hepatitis testing, recent a1c and obtaining ppd test. Objective - Appearance Appearance: Thin Framed Dysmorphic Features: No Hygiene: Normal Grooming: Well Kept - Behavior Psychomotor Activities: Normal Exhibits Abnormal Movement: No - Attitude and Relatedness Attitude and Relatedness: Cooperative Eye Contact: Good - Speech Quality: Unpressured Latencies: Normal Quantity: Appropriate - Mood Patient's Decription of Mood: "Good" - Affect Observed Affect: Good Affect Consistent with: Euthymia - Thought Process Patient's Thought Process: Coherent, Goal Directed Thought Content: No Passive Wish, No Suicidal Planning, No Homicidal Ideation, No Paranoid Ideation - Sensorium Experiencing Hallucinations: No, Sensorium is Clear Type of Hallucinations: Visual: No, Auditory: No, Command: No - Level of Consciousness Level of Consciousness: Alert Orientation: Yes Intact, Yes Orientated to Time, Yes Orientated to Place, Yes Orientated to Person - Impulse Control Impulse Control: Tenuous - Insight and Judgement Insight and Judgement: Fair - Group Participation Particating in Group Activities: Yes - Medication Management Medication Management Adherence: Yes Assessment - Assessment Merits Inpatient Hospitalization: For Immediate Safety, For Stabilization, For Discharge Planning Inpatient DSM-IV Dx: 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 2. Alcohol use d/o. 3. Cocaine use d/o. 4. PTSD. 5. Bipolar d/o by Hx Clinical Impression: Patient is a 51yo female with recent deaths of three loved ones. She was sober from alcohol and drugs for two years and relapsed last week. She reports desire to be referred to extended program for dual diagnosis treatment. She has been non-adherent to most of her medications with the exception of controlled substances. She has been working diligently on researching available substance use treatment facilities. She requests ppd test for admission criteria. She also requests clonidine be reinstated for HTN. Plan - Plan Treatment Plan: Name: PAULIE MARADIAGA Birthdate: 1965 [id number] Continue current medications and add clonidine BID for HTN and anxiety. Obtain VS BID. Continue to treat bipolar disorder with lithium ER at bedtime for improved sleep. Obtain lithium level, BMP and Hgba1c on morning of 02/05/17. Will also place ppd for TB testing. Participate in unit programming to gain full benefit of admission. Continued Medication Management: Different Medication Medications: Current Medications Acetaminophen (Tylenol Tab*) 650 mg PO Q4H PRN PRN Reason: for pain; or Temp >101 F Last Admin: 02/03/17 19:48 Dose: 650 mg Al Hydrox/Mg Hydrox/Simethicone (Maalox Plus*) 30 ml PO Q4H PRN PRN Reason: INDIGESTION Last Admin: 02/03/17 19:49 Dose: 30 ml Amlodipine Besylate (Norvasc Tab*) 10 mg PO DAILY [facility] Last Admin: 02/04/17 08:33 Dose: 10 mg Aspirin (Aspirin Ec Low Dose*) 81 mg PO DAILY [facility] Last Admin: 02/04/17 08:34 Dose: 81 mg Clonazepam (Klonopin Tab(*)) 1 mg PO BID [facility] Last Admin: 02/04/17 08:34 Dose: 1 mg Clonidine HCl (Catapres Tab*) 0.1 mg PO BID [facility] Cyclobenzaprine HCl (Flexeril Tab*) 10 mg PO BID PRN PRN Reason: PAIN Last Admin: 02/03/17 22:14 Dose: 10 mg Diphenhydramine HCl (Benadryl Po*) 50 mg PO Q6H PRN PRN Reason: Allergy Symptoms Last Admin: 02/03/17 22:14 Dose: 50 mg Gabapentin (Neurontin Cap(*)) 600 mg PO TID [facility] Last Admin: 02/04/17 13:24 Dose: 600 mg [place] Carbonate ([place] Carbonate Er Tab*) 900 mg PO BEDTIME [facility] Last Admin: 02/03/17 22:13 Dose: 900 mg Metformin HCl (Glucophage*) 1,000 mg PO BID WITH MEALS [facility] Last Admin: 02/04/17 08:33 Dose: 1,000 mg Metronidazole (Flagyl Tab*) 500 mg PO BID [facility] Stop: 02/05/17 21:01 Last Admin: 02/04/17 08:34 Dose: 500 mg Multivitamins (Theragran Tab*) 1 tab PO DAILY [facility] Last Admin: 02/04/17 08:33 Dose: 1 tab Nicotine (Nicotine Inhaler*) 10 mg INH Q2H PRN PRN Reason: CRAVING Last Admin: 02/04/17 08:38 Dose: 10 mg Nicotine (Nicotine Patch 7 Mg/24 Hr*) 1 patch TRANSDERM DAILY [facility] Last Admin: 02/04/17 08:35 Dose: 1 patch Nicotine Polacrilex (Nicotine Gum*) 2 mg PO Q2H PRN PRN Reason: CRAVING Last Admin: 02/04/17 13:24 Dose: 2 mg Pharmacy Profile Note (Nicotine Patch Removal Note*) 1 note FOLLOW UP 2100 [facility] Last Admin: 02/03/17 22:17 Dose: Not Given Potassium Chloride (Klor Con Er Tab*) 10 meq PO DAILY [facility] Last Admin: 02/04/17 08:33 Dose: 10 meq Tuberculin PPD (Tuberculin Ppd Test Dose*) 5 tu INTRADERM ONCE [facility] Stop: 02/04/17 23:59 Valacyclovir HCl (Valtrex 1 Gm(*)) 1 gm PO DAILY [facility] PRN Reason: Protocol Last Admin: 02/04/17 08:35 Dose: 1 gm - Discharge Plan Discharge Plan: Drug/Alcohol Rehab
[2017-02-04] MEDS ORDERED: PPD test dose* 5 TU/0.1 ML TEST (*USE PPD ORDER SET*) INTRADERM ONE (15:00)
--- NOTE | 2017-02-04 15:59 | PN ---
MHU: Group Therapy Note - Service Type Service Type: [id number] Group Psychotherapy - Group Participation Patient Participating in Group: Yes Level of Group Participation: Attentive, Spontaneously Participate Relatedness to Group: Well Related
[2017-02-04] MEDS: Lithium Carbonate ER* 450 MG TAB.ER PO SCH (21:58)
[2017-02-04] MEDS: cloNIDine TAB* 0.1 MG PO SCH (21:58)
[2017-02-04] MEDS: diPHENhydraMINE PO* 50 MG PO PRN (22:00)
[2017-02-04] MEDS: Cyclobenzaprine TAB* 10 MG PO PRN (22:00)
[2017-02-04] MEDS: Nicotine Patch Removal NOTE FOLLOW UP SCH (23:12)
[2017-02-05 07:31] LABS: BUN/Creatinine Ratio 21.7 (8-20); Calcium 9.6 mg/dL (8.6-10.3); EGFR Non-African American 73.1 (>60); Potassium 3.6 mmol/L (3.5-5.0)
[2017-02-05 08:23] LABS: Lithium 1.14 mmol/L (0.6-1.2)
[2017-02-05] MEDS: Vitamin THERAPEUTIC TAB PO SCH (08:57)
[2017-02-05] MEDS: Aspirin EC Low Dose* 81 MG TAB.EC PO SCH (08:57)
[2017-02-05] MEDS: Gabapentin CAP(*) 300 MG PO SCH ×3 (08:57→22:00)
[2017-02-05] MEDS: Cyclobenzaprine TAB* 10 MG PO PRN ×2 (08:57→22:25)
[2017-02-05] MEDS: metroNIDAZOLE TAB* 250 MG PO SCH ×2 (08:58→22:00)
[2017-02-05] MEDS: VALACYCLOVIR 1 GM PO SCH (08:58)
[2017-02-05] MEDS: metFORMIN* 1,000 MG TAB PO SCH ×2 (08:58→17:41)
[2017-02-05] MEDS: cloNIDine TAB* 0.1 MG PO SCH ×2 (08:59→22:01)
[2017-02-05] MEDS: clonazePAM TAB(*) 1 MG PO SCH ×2 (08:59→22:29)
[2017-02-05] MEDS: amLODIPine TAB* 5 MG PO SCH (08:59)
[2017-02-05] MEDS: Potassium Chlor TAB* 10 MEQ TAB.ER PO SCH (08:59)
[2017-02-05] MEDS: Nicotine PATCH 7 MG/24 HR* PATCH TRANSDERM SCH (09:01)
[2017-02-05] MEDS: Nicotine Inhaler* 10 MG AMP INH PRN (09:03)
[2017-02-05] MEDS: Nicotine GUM* 2 MG PO PRN ×4 (09:04→17:42)
[2017-02-05] MEDS: Acetaminophen TAB* 325 MG PO PRN ×3 (12:52→22:25)
[2017-02-05] MEDS: diPHENhydraMINE PO* 50 MG PO PRN ×2 (12:52→22:25)
--- NOTE | 2017-02-05 14:49 | PN ---
Subjective - Subjective Service Type: 10811 Hosp care 15 min low complexity Subjective: Patient reports much improved mood and presents as euthymic with full range of affect. She reports sleeping well and denies anxiety. Patient informed of labs results and given copies. Stated understanding of results and expressed gratitude of non-active hepatitis. Stated understanding of lithium level and to maintain hydrated. Will recheck BMP and lithium level to monitor for kidney function and toxicity. She continues to plan for substance use rehab and has been coordinated with family members to be able to keep her apartment while away. Objective - Appearance Appearance: Well Developed/Nourished Dysmorphic Features: No Hygiene: Normal Grooming: Well Kept - Behavior Psychomotor Activities: Normal Exhibits Abnormal Movement: No - Attitude and Relatedness Attitude and Relatedness: Cooperative Eye Contact: Good - Speech Quality: Unpressured Latencies: Normal Quantity: Appropriate - Mood Patient's Decription of Mood: "grateful" - Affect Observed Affect: Good Affect Consistent with: Euthymia - Thought Process Patient's Thought Process: Coherent, Goal Directed Thought Content: No Passive Wish, No Suicidal Planning, No Homicidal Ideation, No Paranoid Ideation - Sensorium Experiencing Hallucinations: No, Sensorium is Clear Type of Hallucinations: Visual: No, Auditory: No, Command: No - Level of Consciousness Level of Consciousness: Alert Orientation: Yes Intact, Yes Orientated to Time, Yes Orientated to Place, Yes Orientated to Person - Impulse Control Impulse Control: Intact - Insight and Judgement Insight and Judgement: Good - Group Participation Particating in Group Activities: Yes - Medication Management Medication Management Adherence: Yes Assessment - Assessment Merits Inpatient Hospitalization: For Stabilization, Consolidate Improvements, For Discharge Planning Inpatient DSM-IV Dx: 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 2. Alcohol use d/o. 3. Cocaine use d/o. 4. PTSD. 5. Bipolar d/o by Hx Clinical Impression: Patient is a 51yo female with recent deaths of three loved ones. She was sober from alcohol and drugs for two years and relapsed in the beginning of january. She reports desire to be referred to extended program for dual diagnosis treatment. She had been non-adherent to most of her medications with the exception of controlled substances. She has been working diligently on researching available substance use treatment facilities. She hopes to pursue mental health and substance use recovery and potential go to college. Plan - Plan Treatment Plan: Name: PAULIE MARADIAGA Birthdate: 1965 [id number] Continue current medications and awaiting acceptance to substance use facility. Monitor lithium level and BMP. Continue therapeutic milieu, individual and group psychoeducation. Continued Medication Management: Different Medication Medications: Current Medications Acetaminophen (Tylenol Tab*) 650 mg PO Q4H PRN PRN Reason: for pain; or Temp >101 F Last Admin: 02/05/17 12:52 Dose: 650 mg Al Hydrox/Mg Hydrox/Simethicone (Maalox Plus*) 30 ml PO Q4H PRN PRN Reason: INDIGESTION Last Admin: 02/03/17 19:49 Dose: 30 ml Amlodipine Besylate (Norvasc Tab*) 10 mg PO DAILY [facility] Last Admin: 02/05/17 08:59 Dose: 10 mg Aspirin (Aspirin Ec Low Dose*) 81 mg PO DAILY [facility] Last Admin: 02/05/17 08:57 Dose: 81 mg Clonazepam (Klonopin Tab(*)) 1 mg PO BID [facility] Last Admin: 02/05/17 08:59 Dose: 1 mg Clonidine HCl (Catapres Tab*) 0.1 mg PO BID [facility] Last Admin: 02/05/17 08:59 Dose: 0.1 mg Cyclobenzaprine HCl (Flexeril Tab*) 10 mg PO BID PRN PRN Reason: PAIN Last Admin: 02/05/17 08:57 Dose: 10 mg Diphenhydramine HCl (Benadryl Po*) 50 mg PO Q6H PRN PRN Reason: Allergy Symptoms Last Admin: 02/05/17 12:52 Dose: 50 mg Gabapentin (Neurontin Cap(*)) 600 mg PO TID [facility] Last Admin: 02/05/17 14:41 Dose: 600 mg [place] Carbonate ([place] Carbonate Er Tab*) 900 mg PO BEDTIME [facility] Last Admin: 02/04/17 21:58 Dose: 900 mg Metformin HCl (Glucophage*) 1,000 mg PO BID WITH MEALS [facility] Last Admin: 02/05/17 08:58 Dose: 1,000 mg Metronidazole (Flagyl Tab*) 500 mg PO BID [facility] Stop: 02/05/17 21:01 Last Admin: 02/05/17 08:58 Dose: 500 mg Multivitamins (Theragran Tab*) 1 tab PO DAILY [facility] Last Admin: 02/05/17 08:57 Dose: 1 tab Nicotine (Nicotine Inhaler*) 10 mg INH Q2H PRN PRN Reason: CRAVING Last Admin: 02/05/17 09:03 Dose: 10 mg Nicotine (Nicotine Patch 7 Mg/24 Hr*) 1 patch TRANSDERM DAILY [facility] Last Admin: 02/05/17 09:01 Dose: 1 patch Nicotine Polacrilex (Nicotine Gum*) 2 mg PO Q2H PRN PRN Reason: CRAVING Last Admin: 02/05/17 12:53 Dose: 2 mg Pharmacy Profile Note (Nicotine Patch Removal Note*) 1 note FOLLOW UP 2100 [facility] Last Admin: 02/04/17 23:12 Dose: 1 note Pharmacy Profile Note (Ppd Reading Note*) 1 note .SEE ORDER .ONCE [facility] Stop: 02/07/17 15:00 Potassium Chloride (Klor Con Er Tab*) 10 meq PO DAILY [facility] Last Admin: 02/05/17 08:59 Dose: 10 meq Valacyclovir HCl (Valtrex 1 Gm(*)) 1 gm PO DAILY [facility] PRN Reason: Protocol Last Admin: 02/05/17 08:58 Dose: 1 gm - Discharge Plan Discharge Plan: Drug/Alcohol Rehab Outpatient Program: pending referrals
[2017-02-05] MEDS: Lithium Carbonate ER* 450 MG TAB.ER PO SCH (22:00)
[2017-02-05] MEDS: Nicotine Patch Removal NOTE FOLLOW UP SCH (22:27)
[2017-02-06] MEDS: Aspirin EC Low Dose* 81 MG TAB.EC PO SCH (09:55)
[2017-02-06] MEDS: Gabapentin CAP(*) 300 MG PO SCH ×3 (09:55→22:00)
[2017-02-06] MEDS: Potassium Chlor TAB* 10 MEQ TAB.ER PO SCH (09:56)
[2017-02-06] MEDS: Vitamin THERAPEUTIC TAB PO SCH (09:56)
[2017-02-06] MEDS: cloNIDine TAB* 0.1 MG PO SCH ×2 (09:56→22:00)
[2017-02-06] MEDS: amLODIPine TAB* 5 MG PO SCH (09:56)
[2017-02-06] MEDS: Nicotine PATCH 7 MG/24 HR* PATCH TRANSDERM SCH (09:56)
[2017-02-06] MEDS: VALACYCLOVIR 1 GM PO SCH (09:57)
[2017-02-06] MEDS: metFORMIN* 1,000 MG TAB PO SCH ×2 (09:58→17:15)
[2017-02-06] MEDS: clonazePAM TAB(*) 1 MG PO SCH ×2 (09:58→22:00)
[2017-02-06] MEDS: Nicotine GUM* 2 MG PO PRN ×2 (09:59→16:18)
[2017-02-06] MEDS: Nicotine Inhaler* 10 MG AMP INH PRN (10:18)
[2017-02-06] MEDS: Cyclobenzaprine TAB* 10 MG PO PRN ×2 (13:59→22:01)
[2017-02-06] MEDS: diPHENhydraMINE PO* 50 MG PO PRN ×2 (13:59→22:00)
[2017-02-06] MEDS ORDERED: PPD Reading 48-72 HRS NOTE SCH (15:00)
[2017-02-06] MEDS: Lithium Carbonate ER* 450 MG TAB.ER PO SCH (22:00)
[2017-02-06] MEDS: Nicotine Patch Removal NOTE FOLLOW UP SCH (22:02)
[2017-02-07] MEDS: Gabapentin CAP(*) 300 MG PO SCH ×3 (08:49→22:08)
[2017-02-07] MEDS: amLODIPine TAB* 5 MG PO SCH (08:50)
[2017-02-07] MEDS: Vitamin THERAPEUTIC TAB PO SCH (08:50)
[2017-02-07] MEDS: Aspirin EC Low Dose* 81 MG TAB.EC PO SCH (08:50)
[2017-02-07] MEDS: clonazePAM TAB(*) 1 MG PO SCH (08:50)
[2017-02-07] MEDS: cloNIDine TAB* 0.1 MG PO SCH ×2 (08:50→22:08)
[2017-02-07] MEDS: Nicotine PATCH 7 MG/24 HR* PATCH TRANSDERM SCH (08:50)
[2017-02-07] MEDS: VALACYCLOVIR 1 GM PO SCH (08:50)
[2017-02-07] MEDS: Potassium Chlor TAB* 10 MEQ TAB.ER PO SCH (08:50)
[2017-02-07] MEDS: metFORMIN* 1,000 MG TAB PO SCH ×2 (08:51→16:21)
[2017-02-07] MEDS: Nicotine Inhaler* 10 MG AMP INH PRN (08:53)
[2017-02-07] MEDS: Nicotine GUM* 2 MG PO PRN ×2 (08:53→13:58)
[2017-02-07] MEDS: Lithium Carbonate ER* 450 MG TAB.ER PO SCH (22:08)
[2017-02-07] MEDS: clonazePAM TAB(*) 0.5 MG PO SCH (22:08)
[2017-02-07] MEDS: diPHENhydraMINE PO* 50 MG PO PRN (22:09)
[2017-02-07] MEDS: Cyclobenzaprine TAB* 10 MG PO PRN (22:09)
[2017-02-07] MEDS: Al Hydrox/Mg Hydrox/Simet LIQ* 30 ML UDC PO PRN (22:14)
[2017-02-07] MEDS: Nicotine Patch Removal NOTE FOLLOW UP SCH (22:17)
[2017-02-08 07:12] LABS: BUN/Creatinine Ratio 13.7 (8-20); Blood Urea Nitrogen 10 mg/dL (6-24); CO2 Carbon Dioxide 31 mmol/L (22-32); Calcium 9.6 mg/dL (8.6-10.3); Chloride 104 mmol/L (101-111); EGFR Non-African American 84.7 (>60); Glucose 102 mg/dL (70-100); Potassium 4.2 mmol/L (3.5-5.0); Sodium 135 mmol/L (133-145)
[2017-02-08 07:15] LABS: Lithium 1.22 mmol/L (0.6-1.2)
[2017-02-08] MEDS: Gabapentin CAP(*) 300 MG PO SCH ×4 (08:39→22:15)
[2017-02-08] MEDS: Nicotine PATCH 7 MG/24 HR* PATCH TRANSDERM SCH (08:40)
[2017-02-08] MEDS: amLODIPine TAB* 5 MG PO SCH (08:40)
[2017-02-08] MEDS: Aspirin EC Low Dose* 81 MG TAB.EC PO SCH (08:40)
[2017-02-08] MEDS: cloNIDine TAB* 0.1 MG PO SCH ×2 (08:40→22:13)
[2017-02-08] MEDS: metFORMIN* 1,000 MG TAB PO SCH ×2 (08:40→17:11)
[2017-02-08] MEDS: Vitamin THERAPEUTIC TAB PO SCH (08:41)
[2017-02-08] MEDS: VALACYCLOVIR 1 GM PO SCH (08:41)
[2017-02-08] MEDS: Potassium Chlor TAB* 10 MEQ TAB.ER PO SCH (08:41)
[2017-02-08] MEDS: clonazePAM TAB(*) 0.5 MG PO SCH ×2 (08:42→22:14)
[2017-02-08] MEDS: Nicotine Inhaler* 10 MG AMP INH PRN (08:47)
[2017-02-08] MEDS: Acetaminophen TAB* 325 MG PO PRN (08:47)
[2017-02-08] MEDS: Nicotine GUM* 2 MG PO PRN ×2 (08:47→15:33)
--- NOTE | 2017-02-08 13:22 | PN ---
MHU: Group Therapy Note - Service Type Service Type: [id number] Group Psychotherapy - Cognitive Behavioral Group Therapy ( CBT):Patient was attentive and participatory in CBT programming this morning, and remained in good behavioral control. Patient expressed positive insights regarding relevant treatment interventions and goals.
[2017-02-08] MEDS ORDERED: Lithium Carbonate ER* 450 MG TAB.ER PO SCH (14:53)
--- NOTE | 2017-02-08 14:58 | PN ---
Subjective - Subjective Service Type: [id number] Hosp care 15 min low complexity Subjective: Patient has been irritable and demanding to staff. She threatened violence over the weekend. Today, she is irritable with train planner due to perceived need for urgency in regards to assistance with school social worker. She is informed of insurance requirements of referrals to substance use facilities. She vacillates between going bed to bed or returning to her apartment and asking DSS for emergency assistance. She is informed of facility requirements to not be prescribed controlled substances. She has been refusing gabapentin and states "I don't want it. It's never done anything for me." During meeting with jingle writer and dc certified financial planner, she curses and is verbally aggressive. Objective - Appearance Appearance: Well Developed/Nourished Dysmorphic Features: No Hygiene: Normal Grooming: Well Kept - Behavior Psychomotor Activities: Normal Exhibits Abnormal Movement: No - Attitude and Relatedness Attitude and Relatedness: Irritable Eye Contact: Fair - Speech Quality: Unpressured Latencies: Normal - Affect Observed Affect: Constricted Affect Consistent with: Dysphoria - Thought Process Patient's Thought Process: Circumstantial - demanding of treatment team and staff Thought Content: No Passive Wish, No Suicidal Planning, No Homicidal Ideation, No Paranoid Ideation - Sensorium Experiencing Hallucinations: No, Sensorium is Clear Type of Hallucinations: Visual: No, Auditory: No, Command: No - Level of Consciousness Level of Consciousness: Alert Orientation: Yes Intact, Yes Orientated to Time, Yes Orientated to Place, Yes Orientated to Person - Impulse Control Impulse Control: Intact - Insight and Judgement Insight and Judgement: Fair - Group Participation Particating in Group Activities: No - Medication Management Medication Management Adherence: Partial Assessment - Assessment Merits Inpatient Hospitalization: For Discharge Planning, Pending Safe DC Plan Inpatient DSM-IV Dx: 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 2. Alcohol use d/o. 3. Cocaine use d/o. 4. PTSD. 5. Bipolar d/o by Hx Clinical Impression: Patient is a 51yo female with recent deaths of three loved ones. She was sober from alcohol and drugs for two years and relapsed in the beginning of january. She reports desire to be referred to extended program for dual diagnosis treatment. She had been non-adherent to most of her medications with the exception of controlled substances. She is intermittently cooperative with staff and discharge planning. Malingering cannot be ruled out due to presentation and behavior. Plan - Plan Treatment Plan: Name: PAULIE MARADIAGA Birthdate: 1965 [id number] Decrease lithium due to lithium level and stop potassium replacement. Continue therapeutic milieu, individual and group psychoeducation. Patient is refusing recommendation to taper controlled substances and states preferences to do so after discharge. She will be discharged without clonazepam or flexeril. Will pursue discharge tomorrow due to patient's desire to go to [facility] for rent assistance. Will be given information about substance use referrals that are in -network for her insurance. Continued Medication Management: Different Medication Medications: Current Medications Acetaminophen (Tylenol Tab*) 650 mg PO Q4H PRN PRN Reason: for pain; or Temp >101 F Last Admin: 02/08/17 08:47 Dose: 650 mg Al Hydrox/Mg Hydrox/Simethicone (Maalox Plus*) 30 ml PO Q4H PRN PRN Reason: INDIGESTION Last Admin: 02/07/17 22:14 Dose: 30 ml Amlodipine Besylate (Norvasc Tab*) 10 mg PO DAILY [facility] Last Admin: 02/08/17 08:40 Dose: 10 mg Aspirin (Aspirin Ec Low Dose*) 81 mg PO DAILY [facility] Last Admin: 02/08/17 08:40 Dose: 81 mg Clonazepam (Klonopin Tab(*)) 0.5 mg PO BID [facility] Last Admin: 02/08/17 08:42 Dose: 0.5 mg Clonidine HCl (Catapres Tab*) 0.1 mg PO BID [facility] Last Admin: 02/08/17 08:40 Dose: 0.1 mg Cyclobenzaprine HCl (Flexeril Tab*) 10 mg PO BID PRN PRN Reason: PAIN Last Admin: 02/07/17 22:09 Dose: 10 mg Diphenhydramine HCl (Benadryl Po*) 50 mg PO Q6H PRN PRN Reason: Allergy Symptoms Last Admin: 02/07/17 22:09 Dose: 50 mg Gabapentin (Neurontin Cap(*)) 600 mg PO TID [facility] Last Admin: 02/08/17 13:45 Dose: Not Given Metformin HCl (Glucophage*) 1,000 mg PO BID WITH MEALS [facility] Last Admin: 02/08/17 08:40 Dose: 1,000 mg Multivitamins (Theragran Tab*) 1 tab PO DAILY [facility] Last Admin: 02/08/17 08:41 Dose: 1 tab Nicotine (Nicotine Inhaler*) 10 mg INH Q2H PRN PRN Reason: CRAVING Last Admin: 02/08/17 08:47 Dose: 10 mg Nicotine (Nicotine Patch 7 Mg/24 Hr*) 1 patch TRANSDERM DAILY [facility] Last Admin: 02/08/17 08:40 Dose: 1 patch Nicotine Polacrilex (Nicotine Gum*) 2 mg PO Q2H PRN PRN Reason: CRAVING Last Admin: 02/08/17 08:47 Dose: 2 mg Pharmacy Profile Note (Nicotine Patch Removal Note*) 1 note FOLLOW UP 2100 [facility] Last Admin: 02/07/17 22:17 Dose: 1 note Valacyclovir HCl (Valtrex 1 Gm(*)) 1 gm PO DAILY [facility] PRN Reason: Protocol Last Admin: 02/08/17 08:41 Dose: 1 gm - Discharge Plan Discharge Plan: Drug/Alcohol Rehab
[2017-02-08] MEDS ORDERED: Lithium Carbonate TAB* 300 MG PO SCH (21:00)
[2017-02-08] MEDS: Nicotine Patch Removal NOTE FOLLOW UP SCH (22:11)
[2017-02-08] MEDS: Cyclobenzaprine TAB* 10 MG PO PRN (22:14)
[2017-02-09] MEDS: Nicotine PATCH 7 MG/24 HR* PATCH TRANSDERM SCH (07:58)
[2017-02-09] MEDS: metFORMIN* 1,000 MG TAB PO SCH (07:58)
[2017-02-09] MEDS: Gabapentin CAP(*) 300 MG PO SCH (08:00)
[2017-02-09] MEDS: cloNIDine TAB* 0.1 MG PO SCH (08:01)
[2017-02-09] MEDS: amLODIPine TAB* 5 MG PO SCH (08:01)
[2017-02-09] MEDS: Vitamin THERAPEUTIC TAB PO SCH (08:01)
[2017-02-09] MEDS: clonazePAM TAB(*) 0.5 MG PO SCH (08:02)
[2017-02-09] MEDS: Aspirin EC Low Dose* 81 MG TAB.EC PO SCH (08:02)
[2017-02-09] MEDS: VALACYCLOVIR 1 GM PO SCH (08:03)
[2017-02-09] MEDS: Cyclobenzaprine TAB* 10 MG PO PRN (08:04)
[2017-02-09 08:06] VITALS: BP 117/79
--- NOTE | 2017-02-09 11:25 | PN ---
MHU: Group Therapy Note - Service Type Service Type: [id number] Group Psychotherapy - Cognitive Behavioral Group Therapy ( CBT):Patient was attentive and participatory in CBT programming this morning, and remained in good behavioral control. Patient expressed positive insights regarding relevant treatment interventions and goals.
[2017-02-09] MEDS: Nicotine Inhaler* 10 MG AMP INH PRN (12:44)
[2017-02-09] MEDS: Nicotine GUM* 2 MG PO PRN (12:44)
--- NOTE | 2017-02-09 16:49 | DS ---
CC: [facility], Silvia Choudhury NP* DISCHARGE SUMMARY: DATE OF ADMISSION: 01/28/17 DATE OF DISCHARGE: 02/09/17 SUPERVISING PSYCHIATRIST: Tyrone Felton MD* (dictated by ARSLAN Curry) . DISCHARGE DIAGNOSES: Spring I: Bipolar disorder with mixed features, PTSD, alcohol use disorder, cocaine use disorder. Spring II: Consider antisocial personality traits. Spring III: Hypertension, type 2 diabetes mellitus, hypercholesterolemia, hepatitis C. Spring IV: Stressors related to housing, financial strain, and sequelae of substance use. Spring V: 67. CONDITION AT THE TIME OF DISCHARGE: Improved. The patient is no longer withdrawing some substances. She states readiness to attend substance use rehab. She states understanding of need to avoid controlled substances. Saniya states that she spoke with admission coordinator at [facility] in [place], [place], and has plans to be admitted on 02/15/17. She states that she was given the opportunity to come tomorrow, but she wants to remain in [place] and arrange to continue living in her current apartment or to find a place to move her belongings. She states that she has friends and adult children that she can ask to help her with these. She denies suicidal ideation. She denies thoughts of harm to herself or other people. She is calm and in behavioral control, interactive with both staff and peers. corporate event planner assisted with coordinating DSS benefits and identified that Saniya had been given an eviction notice that was likely short in duration. corporate event planner notified Saniya of this notice and that DSS shift superintendent caustic cresylate is helping to reach out to the landlord and assist in avoiding eviction. Saniya was given a letter to denote her length of stay in the hospital and that she did not have access to the eviction notice. MENTAL STATUS EXAM: Saniya is a thin framed female, dressed in her own clothing. She appears stated age. She is well groomed. She is cooperative and engaged in conversation. No abnormal psychomotor activity noted. She is alert and oriented x3. Her concentration is good. Her recall is 3/3. Her mood is "okay." Her affect is full range. Her speech is soft and articulate. Form of thought is logical, coherent, and goal oriented. Content of thought is negative for AH, VH, SI, or HI. She denies rituals, delusions, or preoccupations. Her insight is good. Her judgment is fair. Her fund of knowledge is excellent. Instructions are given to the patient. MEDICATIONS: She is to continue: 1. Aspirin EC 81 mg daily. 2. Gabapentin 600 mg p.o. 3 times a day. 3. [place] ER 450 mg p.o. q.h.s. 4. [place] carbonate 300 mg p.o. q.h.s. 5. Nicotine gum 2 mg p.o. q. 2h p.r.n. craving. 6. Nicotine patch 7 mg apply 1 patch daily. 7. Valtrex 1 g p.o. daily. 8. Amlodipine 10 mg p.o. daily. 9. Clonidine 0.1 mg p.o. b.i.d. 10. Clonazepam 0.5 mg p.o. daily x5 days, then discontinue. 11. Metformin 1000 mg p.o. b.i.d. 12. Diphenhydramine 50 mg p.o. daily p.r.n. allergy symptoms. DIET: Diabetic. ACTIVITY: Ambulation as tolerated. Tobacco cessation. Assistance provided. There are no pending labs or diagnostic studies at the time of discharge. While on the unit, she received sickle cell screening which was negative. She was tested for hepatitis antibodies, which were positive. The RNA was undetected. She was negative for HIV 1 and 2. FOLLOWUP CARE: Saniya is encouraged to follow up with her primary care provider , Silvia Choudhury NP, at [facility] for medication management. Saniya is instructed to follow up with [facility] in [place] and have a bed day for 02/15/17. She declined offer of outpatient mental health services or alcohol or drug rehabilitation services counselor services in [place]. HOSPITAL COURSE: A. Reason for admission. The patient presented to the emergency room with complaints of a manic episode and auditory hallucinations. She endorsed paranoia and SI. She had been noncompliant with medications for 4 months and recently relapsed on alcohol and multiple substances. B. Psychiatric treatment rendered. While in the emergency room, the patient was noted to have severe hypokalemia and had an allergic reaction to lisinopril. She was medically cleared and was admitted to the behavioral services unit on voluntary status. Her code status was full. She was placed on 15-minute checks for safety and encouraged to participate in therapeutic milieu, individual, and psychoeducational groups. Upon assessment, she was noted to have continued tongue edema. Consultation with hospitalist was done and no further interventions were necessary. Lisinopril and atenolol were both discontinued as she appeared to continue to have reactions to these medications including hives and tongue edema. Thus, allergy symptoms resolved. The patient was placed on [facility] protocol for both benzodiazepine and alcohol withdrawal and tapering. She was agreeable to a trial of lithium for bipolar disorder. She was encouraged to start taper of benzodiazepine use. She was ordered potassium chloride supplement and labs were repeated for both BMP and lithium level. The patient requested further testing of hepatitis and HIV. Hepatitis antibody was high reactive. Further testing for hepatitis C RNA was undetected. She was notified of all of the above including negative HIV. Sickle cell screen was negative as well. By 02/08/17, her potassium was within normal limits and potassium chloride was discontinued. Tapering of benzodiazepine use and controlled substances continued while on the unit. DISCHARGE PLANNING: Included identifying available substance use facilities depending on the patient's insurance coverage. The patient actively researched substance use facilities that she was interested in. At times, she had poor insight about the need to identify resources that would be covered by her insurance. Throughout the stay, the patient was in disagreement about benzodiazepine taper. She requested to find substance use facilities that would accept the patient's use of Klonopin; however, this was to no avail. The patient was intermittently irritable and verbally aggressive to staff while on the unit. She would quickly be apologetic for doing so. She reported that she vacillated between going to a substance use facility directly from the mental health unit or needing to return home to arrange for emergency housing assistance due to an eviction notice. Once the release of information was obtained, Discharge Planning contacted [facility] and identified that the patient was at risk for being evicted. She agreed to discharge in order to go to [facility] and apply for assistance. She will also identify whether or not she can stay in that apartment or she needs to find a place to store her belongings while she is at rehab in [place]. The patient was instructed that controlled substances will not be provided with the exception of a daily dose of clonazepam for 5 days until admitted to [facility]. The patient was safe on all checks. She denied suicidal ideation, risk for self-harm. Observation status was decreased to 30 minutes and she was allowed to go on staff pass. Stressors that led to admission include substance use and financial strain. The patient was assisted in [place] as well as identifying [facility] resources for housing. The patient states that she would like assistance with bus fare to [place] on Wednesday morning, to attend [facility]. The patient was discharged by nursing staff to a taxi to go to [facility] this afternoon. DIAMANTE DE, JAIDEN [id number]/CPS #: [id number] OWEN
== END 2017-02-09 13:30 | disposition home or self-care (01) | DRG 885 ==
LOC: ED 13:03 → BSU 01-28 13:53
PROVIDERS: ADMIT Psychiatry & Neurology Psychiatry; ATTEND Psychiatry & Neurology Psychiatry
PROC: GZHZZZZ Group Psychotherapy (ICD-10-PCS; principal; 2017-02-04)
DX: F31.60 Bipolar disorder, current episode mixed, unspecified (principal); E11.40 Type 2 diabetes mellitus with diabetic neuropathy, unspecified; R45.851 Suicidal ideations; F10.94 Alcohol use, unspecified with alcohol-induced mood disorder; F22 Delusional disorders; I10 Essential (primary) hypertension; B19.20 Unspecified viral hepatitis C without hepatic coma; E87.6 Hypokalemia; Z62.810 Personal history of physical and sexual abuse in childhood; F43.10 Post-traumatic stress disorder, unspecified; F41.1 Generalized anxiety disorder; F14.14 Cocaine abuse with cocaine-induced mood disorder; N76.0 Acute vaginitis; L29.9 Pruritus, unspecified; Y90.0 Blood alcohol level of less than 20 mg/100 ml; F60.3 Borderline personality disorder; E78.5 Hyperlipidemia, unspecified; T46.4X5A Adverse effect of angiotensin-converting-enzyme inhibitors, initial encounter; T78.3XXA Angioneurotic edema, initial encounter; Z79.82 Long term (current) use of aspirin; Z79.84 Long term (current) use of oral hypoglycemic drugs; Z91.5 Personal history of self-harm; Z81.8 Family history of other mental and behavioral disorders; Z88.8 Allergy status to other drugs, medicaments and biological substances; Z56.0 Unemployment, unspecified; Z90.710 Acquired absence of both cervix and uterus
CPT/HCPCS: 36415; 80048; 80053; 80074; 80178; 80307; 80320; 80329; 81003; 81015; 83036; 84443; 84702; 85025; 85660; 86703; 87086; 87522; 87902; 90853; 93005; 99222; 99231; 99238; A9270-GY; G0480; J1200; J2060; J2930